=== PATIENT | male | born 1995 | race Caucasian/White ===

== ENCOUNTER 2019-11-29 13:28 | Emergency (ER) | payer OTHER ==
[~2019-11-29] VITALS: Ht 175.3 cm; Wt 81.6 kg
[~2019-11-29 13:28] MED LIST: CLONAZEPAM1 MG PO
== END 2019-11-29 17:12 | disposition home or self-care (01) ==
LOC: ED 13:28
DX: S10.0XXA Contusion of throat, initial encounter (principal); F41.9 Anxiety disorder, unspecified; F31.9 Bipolar disorder, unspecified; Z87.891 Personal history of nicotine dependence; X58.XXXA Exposure to other specified factors, initial encounter
CPT/HCPCS: 72125; 99283-25

== ENCOUNTER 2020-02-08 10:19 | Emergency (ER) | payer OTHER ==
[~2020-02-08] VITALS: Ht 175.3 cm; Wt 81.7 kg
--- OUTSIDE RECORDS SUMMARY | ~2020-02-08 | XMS | Encounter Summary ---
Demographics + + + | Address | [address] | | | [facility] [facility] [place] [address] | + + + | Home Phone | | + + + | Preferred Language | Unknown | + + + | Marital Status | Single | + + + | Buddhist Affiliation | 1013 | + + + | Race | Unknown | + + + | Ethnic Group | Unknown | + + + Author + + + | Author | [facility] | | | and [place] | + + + | Organization | [facility] | | | and [place] | + + + | Address | Unknown | + + + | Phone | Unavailable | + + + Support + + +---------+ + | Name | Relationship | Address | Phone | + + +---------+ + | Sheba Lee | ECON | Unknown | | + + +---------+ + Care Team Providers + +------+ + | Care Human Resources File Clerk Name | Role | Phone | + +------+ + PCP | Unavailable | + +------+ + Encounter Details +--------+ + + + + | Date | Type | Department | Care Team | Description | +--------+ + + + + | 03/29/ | [facility] | [facility] | [place], | | | 2012 | Encounter | [facility] | [address] | | | | | CENTER [address] | [facility] | | | | | [place] | [place] [address] | | | | | [address] | [phone] | | | | | [phone] | | | +--------+ + + + + Social History + +-------+ +--------+------+ | Tobacco Use | Types | Packs/Day | Years | Date | | | | | Used | | + +-------+ +--------+------+ | Never Assessed | | | | | + +-------+ +--------+------+ + + + | Sex Assigned at | Date Recorded | | | | + + + | Not on file | | + + + + + + + | Job Start Date | Occupation | Industry | + + + + | Not on file | Not on file | Not on file | + + + + + + + + | Travel History | Travel Start | Travel End | + + + + + + | No recent travel history available. | + + documented as of this encounter Plan of Treatment Not on filedocumented as of this encounter Procedures + +--------+ + + + | Procedure Name | Priori | Date/Time | Associated Diagnosis | Comments | | | ty | | | | + +--------+ + + + | DRUGS OF ABUSE, | Routin | 03/29/2013 | | Results for this | | SCREEN, URINE | e | 2:12 AM | | procedure are in the | | | | PDT | | results section. | + +--------+ + + + | CBC WITH | Routin | 03/29/2013 | | Results for this | | DIFFERENTIAL | e | 2:12 AM | | procedure are in the | | | | PDT | | results section. | + +--------+ + + + | TSH | Routin | 03/29/2013 | | Results for this | | | e | 2:12 AM | | procedure are in the | | | | PDT | | results section. | + +--------+ + + + | ALCOHOL | Routin | 03/29/2013 | | Results for this | | | e | 2:12 AM | | procedure are in the | | | | PDT | | results section. | + +--------+ + + + | ACETAMINOPHEN LEVEL | Routin | 03/29/2013 | | Results for this | | | e | 2:12 AM | | procedure are in the | | | | PDT | | results section. | + +--------+ + + + | SALICYLATE LEVEL | Routin | 03/29/2013 | | Results for this | | | e | 2:12 AM | | procedure are in the | | | | PDT | | results section. | + +--------+ + + + | COMPREHENSIVE | Routin | 03/29/2013 | | Results for this | | METABOLIC PANEL | e | 2:12 AM | | procedure are in the | | | | PDT | | results section. | + +--------+ + + + documented in this encounter Results CBC with Differential (03/29/2013 2:12 AM PDT) + +-------+ + + + | Component | Value | Ref Range | Performed | Pathologist | | | | | At | Signature | + +-------+ + + + | MANUAL | NO | | [facility] | [facility] | [facility] | | [facility] ? | | | [facility] | | | | | | C[facility] - | | | | | | LABORATORY | | + +-------+ + + + | WBC | 10.7 | 4.0 - 11.0 K/uL | [facility] | | | | | | [facility] | | | | | | [facility] | | | | | | CENTER - | | | | | | LABORATORY | | + +-------+ + + + | RBC | 4.75 | 4.30 - 5.70 | [facility] | | | | | M/uL | [facility] | | | | | | [facility] | | | | | | CENTER - | | | | | | LABORATORY | | + +-------+ + + + | Hemoglobin | 14.7 | 13.5 - 18.0 | [facility] | | | | | gm/dL | [facility] | | | | | | MEDICAL | | | | | | CENTER - | | | | | | LABORATORY | | + +-------+ + + + | Hematocrit | 44.7 | 40.0 - 51.0 % | [facility] | | | | | | [facility] | | | | | | [facility]ICAL | | | | | | CENTER - | | | | | | LABORATORY | | + +-------+ + + + | MCV | 94.1 | 83.0 - 101.0 fL | [facility] | | | | | | [facility] | | | | | | MEDICAL | | | | | | CENTER - | | | | | | LABORATORY | | + +-------+ + + + | MCH | 30.9 | 28.0 - 35.0 pg | [facility] | | | | | | [facility] | | | | | | [facility]ICAL | | | | | | CENTER - | | | | | | LABORATORY | | + +-------+ + + + | MCHC | 32.8 | 32.0 - 36.0 | [facility] | | | | | g/dL | [facility] | | | | | | MEDICAL | | | | | | CENTER - | | | | | | LABORATORY | | + +-------+ + + + | RDW-CV | 12.4 | <15.0 % | [facility] | | | | | | [facility] | | | | | | [facility]ICAL | | | | | | CENTER - | | | | | | LABORATORY | | + +-------+ + + + | Platelet | 290 | 140 - 440 K/uL | [facility] | | | Count | | | [facility] | | | | | | MEDICAL | | | | | | CENTER - | | | | | | LABORATORY | | + +-------+ + + + | % | 60.6 | 45 - 75 % | [facility] | | | Neutrophils | | | [facility] | | | | | | MEDICAL | | | | | | CENTER - | | | | | | LABORATORY | | + +-------+ + + + | % | 29.0 | 20 - 45 % | [facility] | | | Lymphocytes | | | [facility] | | | | | | MEDICAL | | | | | | CENTER - | | | | | | LABORATORY | | + +-------+ + + + | % Monocytes | 8.4 | 4 - 12 % | [facility] | | | | | | [facility] | | | | | | MEDICAL | | | | | | CENTER - | | | | | | LABORATORY | | + +-------+ + + + | % | 1.7 | 0 - 5 % | [facility] | | | Eosinophils | | | [facility] | | | | | | MEDICAL | | | | | | CENTER - | | | | | | LABORATORY | | + +-------+ + + + | % Basophils | 0.3 | 0 - 1 % | [facility] | | | | | | [facility] | | | | | | MEDICAL | | | | | | CENTER - | | | | | | LABORATORY | | + +-------+ + + + | Absolute | 6.5 | 1.5 - 6.6 K/uL | [facility] | | | Neutrophils | | | [facility] | | | | | | MEDICAL | | | | | | CENTER - | | | | | | LABORATORY | | + +-------+ + + + | Absolute | 3.1 | 0.6 - 3.2 K/uL | [facility] | | | Lymphocytes | | | [facility] | | | | | | MEDICAL | | | | | | CENTER - | | | | | | LABORATORY | | + +-------+ + + + | Absolute | 0.9 | 0.0 - 1.0 K/uL | [facility] | | | Monocytes | | | [facility] | | | | | | [facility] | | | | | | CENTER - | | | | | | LABORATORY | | + +-------+ + + + | Absolute | 0.2 | 0.0 - 0.4 K/uL | [facility] | | | Eosinophils | | | [facility] | | | | | | MEDICAL | | | | | | CENTER - | | | | | | LABORATORY | | + +-------+ + + + | Absolute | 0.0 | 0.0 - 0.1 K/uL | [facility] | | | Basophils | | | [facility] | | | | | | MEDICAL | | | | | | CENTER - | | | | | | LABORATORY | | + +-------+ + + + + + | Specimen | + + | | + + + + + + + | Performing | Address | City/State/Zipcode | Phone Number | | Organization | | | | + + + + + | [facility] | [address] | [place], [place] | [phone] | | [facility] | | [address] | | | - LABORATORY | | | | + + + + + | [facility] | [address] | [place] | | | [facility] | | [address] | | | - LABORATORY | | | | + + + + + TSH (03/29/2013 2:12 AM PDT) + + + + + + | Component | Value | Ref Range | Performed | Pathologist | | | | | At | Signature | + + + + + + | TSH | 2.86Comment: Testing | 0.34 - 5.60 | [facility] | | | | performed on the [facility] | uIU/mL | [facility] | | | | [facility] | | MEDICAL | | | | Analyzer. | | CENTER - | | | | | | LABORATORY | | + + + + + + + + | Specimen | + + | | + + + + + + + | Performing | Address | City/State/Zipcode | Phone Number | | Organization | | | | + + + + + | [facility] | [address] | [place] | [phone] | | [facility] | | [address] | | | - LABORATORY | | | | + + + + + | [facility] | [address] | [place], [place] | | | [facility] | | [id number] [place] [address] | | | - LABORATORY | | | | + + + + + Comprehensive Metabolic Panel (03/29/2013 2:12 AM PDT) + + + + + + | Component | Value | Ref Range | Performed | Pathologist | | | | | At | Signature | + + + + + + | Glucose | 104 | 70 - 109 mg/dL | [facility] | | | | | | [facility] | | | | | | MEDICAL | | | | | | CENTER - | | | | | | LABORATORY | | + + + + + + | Calcium | 9.3 | 8.3 - 10.5 | [facility] | | | | | mg/dL | [facility] | | | | | | MEDICAL | | | | | | CENTER - | | | | | | LABORATORY | | + + + + + + | Alkaline | 75 | 40 - 210 IU/L | [facility] | | | Phosphatase | | | [facility] | | | | | | MEDICAL | | | | | | CENTER - | | | | | | LABORATORY | | + + + + + + | AST | 23 | 10 - 42 IU/L | [facility] | | | | | | [facility] | | | | | | MEDICAL | | | | | | CENTER - | | | | | | LABORATORY | | + + + + + + | ALT | 22 | 6 - 45 IU/L | [facility] | | | | | | [facility] | | | | | | MEDICAL | | | | | | CENTER - | | | | | | LABORATORY | | + + + + + + | Bilirubin | 0.5 | 0.2 - 1.0 mg/dL | [facility] | | | Total | | | [facility] | | | | | | MEDICAL | | | | | | CENTER - | | | | | | LABORATORY | | + + + + + + | Total | 7.1 | 6.0 - 7.8 gm/dL | [facility] | | | Protein | | | [facility] | | | | | | MEDICAL | | | | | | CENTER - | | | | | | LABORATORY | | + + + + + + | Albumin | 4.3 | 3.2 - 5.0 gm/dL | [facility] | | | | | | [facility] | | | | | | MEDICAL | | | | | | CENTER - | | | | | | LABORATORY | | + + + + + + | BUN | 15 | 7 - 18 mg/dL | [facility] | | | | | | [facility] | | | | | | MEDICAL | | | | | | CENTER - | | | | | | LABORATORY | | + + + + + + | Creatinine | 0.73 | 0.60 - 1.30 | [facility] | | | | | mg/dL | [facility] | | | | | | MEDICAL | | | | | | CENTER - | | | | | | LABORATORY | | + + + + + + | BUN/Creatin | 20.5 (H) | 12 - 20 | [facility] | | | ine Ratio | | | [facility] | | | | | | MEDICAL | | | | | | CENTER - | | | | | | LABORATORY | | + + + + + + | Na | 139 | 136 - 149 mEq/L | [facility] | | | | | | [facility] | | | | | | MEDICAL | | | | | | CENTER - | | | | | | LABORATORY | | + + + + + + | K | 3.7 | 3.5 - 5.1 mEq/l | [facility] | | | | | | [facility] | | | | | | MEDICAL | | | | | | CENTER - | | | | | | LABORATORY | | + + + + + + | Cl | 105 | 98 - 109 mEq/l | [facility] | | | | | | [facility] | | | | | | MEDICAL | | | | | | CENTER - | | | | | | LABORATORY | | + + + + + + | CO2 | 27 | 24 - 31 mEq/L | [facility] | | | | | | [facility] | | | | | | MEDICAL | | | | | | CENTER - | | | | | | LABORATORY | | + + + + + + | Anion Gap | 10.7 | 6.0 - 17.0 | [facility] | | | | | | [facility] | | | | | | MEDICAL | | | | | | CENTER - | | | | | | LABORATORY | | + + + + + + + + | Specimen | + + | | + + + + + + + | Performing | Address | City/State/Zipcode | Phone Number | | Organization | | | | + + + + + | [facility] | [address] | [place], [place] | [phone] | | [facility] | | [address] | | | - LABORATORY | | | | + + + + + | [facility] | [address] | [place], [place] | | | [facility] | | [address], [facility] | | | - LABORATORY | | | | + + + + + Acetaminophen Level (03/29/2013 2:12 AM PDT) + +-------+ + + + | Component | Value | Ref Range | Performed | Pathologist | | | | | At | Signature | + +-------+ + + + | Acetaminoph | <10 | 10 - 30 ug/mL | [facility] | | | en Level | | | [facility] | | | | | | MEDICAL | | | | | | CENTER - | | | | | | LABORATORY | | + +-------+ + + + + + | Specimen | + + | | + + + + + + + | Performing | Address | City/State/Zipcode | Phone Number | | Organization | | | | + + + + + | [facility] | [address] | [place] | [phone] | | [facility] | | [address] | | | - LABORATORY | | | | + + + + + | [facility] | [address] | [place] | | | [facility] | | [address] | | | - LABORATORY | | | | + + + + + Salicylate Level (03/29/2013 2:12 AM PDT) + +-------+ + + + | Component | Value | Ref Range | Performed | Pathologist | | | | | At | Signature | + +-------+ + + + | Salicylate | <4 | <30 mg/dL | [facility] | | | Level | | | [facility] | | | | | | MEDICAL | | | | | | CENTER - | | | | | | LABORATORY | | + +-------+ + + + + + | Specimen | + + | | + + + + + + + | Performing | Address | City/State/Zipcode | Phone Number | | Organization | | | | + + + + + | [facility] | [address] | [place] | [phone] | | [facility] | | [address] | | | - LABORATORY | | | | + + + + + | [facility] | [address] | [place] | | | [facility] | | [address] | | | - LABORATORY | | | | + + + + + Ethanol (03/29/2013 2:12 AM PDT) + +-------+ + + + | Component | Value | Ref Range | Performed | Pathologist | | | | | At | Signature | + +-------+ + + + | ALCOHOL, | <5 | mg/dL | [facility] | | | SERUM/PLASM | | | [facility] | | | A | | | MEDICAL | | | | | | CENTER - | | | | | | LABORATORY | | + +-------+ + + + + + | Specimen | + + | | + + + + + + + | Performing | Address | City/State/Zipcode | Phone Number | | Organization | | | | + + + + + | [facility] | [address] | [place] | [phone] | | [facility] | | [address] | | | - LABORATORY | | | | + + + + + | [facility] | [address] | [place], [place] | | | [facility] | | [address] | | | - LABORATORY | | | | + + + + + Drugs of Abuse, Screen, Urine (03/29/2013 2:12 AM PDT) + + + + + + | Component | Value | Ref Range | Performed | Pathologist | | | | | At | Signature | + + + + + + | Amphetamine | NEGATIVE | NEGATIVE | [facility] | | | Screen, | | | [facility] | | | Urine | | | MEDICAL | | | | | | CENTER - | | | | | | LABORATORY | | + + + + + + | Barbiturate | NEGATIVE | NEGATIVE | [facility] | | | s Screen, | | | [facility] | | | Urine | | | MEDICAL | | | | | | CENTER - | | | | | | LABORATORY | | + + + + + + | Benzodiazep | NEGATIVE | NEGATIVE | [facility] | | | alexa | | | [facility] | | | Screen, | | | MEDICAL | | | Urine | | | CENTER - | | | | | | LABORATORY | | + + + + + + | Cannabinoid | NEGATIVE | NEGATIVE | [facility] | | | s Screen, | | | [facility] | | | Urine | | | MEDICAL | | | | | | CENTER - | | | | | | LABORATORY | | + + + + + + | Cocaine | NEGATIVE | NEGATIVE | [facility] | | | Metabolite | | | [facility] | | | | | | MEDICAL | | | | | | CENTER - | | | | | | LABORATORY | | + + + + + + | Methadone | NEGATIVE | NEGATIVE | [facility] | | | Screen, | | | [facility] | | | Urine | | | MEDICAL | | | | | | CENTER - | | | | | | LABORATORY | | + + + + + + | Opiates | NEGATIVEComment: The | NEGATIVE | [facility] | | | Screen, | following drugs or | | [facility] | | | Urine | classes were screened | | MEDICAL | | | | for by immunoassay at | | CENTER - | | | | these cutoff | | LABORATORY | | | | concentrations: | | | | | | Amphetamines | | | | | | 1000 ng/mL | | | | | | Barbiturates | | | | | | 200 ng/mL | | | | | | Benzodiazepines | | | | | | 200 ng/mL | | | | | | Cannabinoids | | | | | | 50 ng/mL | | | | | | Cocaine Metabolite | | | | | | 300 ng/mL | | | | | | Methadone | | | | | | 300 ng/mL | | | | | | Opiates | | | | | | 300 ng/mL | | | | | | This emergency urinary | | | | | | drug screen will not | | | | | | exclude drugs at | | | | | | levels below the | | | | | | cut-off point for | | | | | | screening, and may not | | | | | | correlate with current | | | | | | blood levels. These | | | | | | results should not be | | | | | | used for non-medical | | | | | | purposes. For important | | | | | | clinical decisions, | | | | | | confirmation by separate | | | | | | assay should be done. | | | | | | | | | | + + + + + + + + | Specimen | + + | | + + + + + + + | Performing | Address | City/State/Zipcode | Phone Number | | Organization | | | | + + + + + | [facility] | [address] | [place] | [phone] | | [facility] | | [address] | | | - LABORATORY | | | | + + + + + | [facility] | [address] | [place] | | | [facility] | | [address] | | | - LABORATORY | | | | + + + + + documented in this encounter Visit Diagnoses Not on filedocumented in this encounter"
--- OUTSIDE RECORDS SUMMARY | ~2020-02-08 | XMS | Clinical Summary ---
Demographics + + + | Address | [address] | | | [place] [address] | + + + | Home Phone | | + + + | Preferred Language | Unknown | + + + | Marital Status | Single | + + + | Sikhism Affiliation | 1013 | + + + | Race | Unknown | + + + | Ethnic Group | Unknown | + + + Author + + + | Author | [facility] | | | and [place] | + + + | Organization | [facility] | | | and [place] | [...] Team Providers + +------+ + | Care Powderer Name | Role | Phone | + +------+ + | Denny Conteh MD | PCP | | + +------+ + Allergies No Known Allergies Medications + + + +---------+------+------+-------+ | Medication | Sig | Dispensed | Refills | Star | End | Statu | | | | | | t | Date | s | | | | | | Date | | | + + + +---------+------+------+-------+ | gabapentin | Take 1 tablet by | 90 | 1 | 05/27 | | Activ | | (NEURONTIN) 800 MG | mouth 3 times daily. | tablet | | 0 | | e | | tabletIndications: | | | | 16 | | | | Bipolar affective | | | | | | | | disorder, remission | | | | | | | | status unspecified | | | | | | | | ([facility]) | | | | | | | + + + +---------+------+------+-------+ +---+ + | | Additional | | | InformationPatient | | | not taking. Reason: | | | ., Reported on | | | 05/07/2019 6:40 PM | +---+ + + + +---+---+------+---+-------+ | guanFACINE (TENEX) | Take 1 mg by mouth. | | 0 | 07/0 | | Activ | | 1 mg tablet | | | | 04/13 | | e | | | | | | 17 | | | + + +---+---+------+---+-------+ | | Take by mouth. | | 0 | | | Activ | | Aspirin-Acetaminophe | | | | | | e | | n-Caffeine (EXCEDRIN | | | | | | | | PO) | | | | | | | + + +---+---+------+---+-------+ | escitalopram | Take 20 mg by mouth | | 0 | | | Activ | | (LEXAPRO) 20 mg | Daily. | | | | | e | | tablet | | | | | | | + + +---+---+------+---+-------+ | PARoxetine (PAXIL) | Take 10 mg by mouth | | 0 | | | Activ | | 10 mg tablet | every morning. | | | | | e | + + +---+---+------+---+-------+ Active Problems No known active problems Immunizations + + + + | Name | Administration Dates | Next Due | + + + + | TDAP, (ADOL/ADULT) | 07/27/2017 | | + + + + Social History + +-------+ +--------+------+ | Tobacco Use | Types | Packs/Day | Years | Date | | | | | Used | | + +-------+ +--------+------+ | Current Some Day | | | | | | Smoker | | | | | + +-------+ +--------+------+ + +---+---+---+ | Smokeless Tobacco: | | | | | Former User | | | | + +---+---+---+ + + +---------+ + | Alcohol Use | Drinks/Week | oz/Week | Comments | + + +---------+ + | Yes | | | | + + +---------+ + + + + | Sex Assigned at [...] recent travel history available. | + + Last Filed Vital Signs + + + + + | Vital Sign | Reading | Time Taken | Comments | + + + + + | Blood Pressure | 132/71 | 05/07/2019 6:36 PM | | | | | PDT | | + + + + + | Pulse | 69 | 05/07/2019 8:45 PM | | | | | PDT | | + + + + + | Temperature | 36.5 C (97.7 F) | 05/07/2019 6:36 PM | | | | | PDT | | + + + + + | Respiratory Rate | 14 | 05/07/2019 8:32 PM | | | | | PDT | | + + + + + | Oxygen Saturation | 100% | 05/07/2019 8:45 PM | | | | | PDT | | + + + + + | Inhaled Oxygen | - | - | | | Concentration | | | | + + + + + | Weight | 76.5 kg (168 lb 10.4 | 05/07/2019 6:36 PM | | | | oz) | PDT | | + + + + + | Height | 175.3 cm (5' 9") | 05/07/2019 6:36 PM | | | | | PDT | | + + + + + | Body Mass Index | 24.91 | 05/07/2019 6:36 PM | | | | | PDT | | + + + + + Plan of Treatment + + + + + | Health Maintenance | Due Date | Last Done | Comments | + + + + + | Vaccine: | | | | | Pneumococcal 19-64 | 3 | | | | (1 of 1 - PPSV23) | | | | + + + + + | Vaccine: Influenza | | 08/21/2018, 11/21/2017, | | | (Season Ended) | 0 | 08/27/2014 | | + + + + + | Vaccine: | | 07/27/2017, 07/28/2013, | | | Dtap/Tdap/Td (6 - | 7 | 08/20/2012, Additional history | | | Td) | | exists | | + + + + + Results Not on filefrom Last 3 Months Insurance + +--------+ +--------+ +---------+--------+ | Payer | Benefi | Subscriber | Effect | Phone | Address | Type | | | t Plan | ID | daniel | | | | | | / | | Dates | | | | | | Group | | | | | | + +--------+ +--------+ +---------+--------+ | [employer] | MODA | [id number] | | [phone] | | Medica | | MEDICAID HMO | HEALTH | | 018-Pr | 1 | | id | | | MDCD | | esent | | | | | | [place] | | | | | | + +--------+ +--------+ +---------+--------+ | [employer]ID | AMERIG | [id number] | 11/24/19 | | | Medica | | HMO | ROUP | | 19-Pre | | | id | | | APPLE | | sent | | | | | | [place]ALTH | | | | | | | | [place] | | | | | | + +--------+ +--------+ +---------+--------+ + +--------+ +--------+ + + | Guarantor Name | Accoun | Relation to | Date | Phone | Billing Address | | | t Type | Patient | of | | | | | | | | | | + +--------+ +--------+ + + | Jeyson Lee | Person | Self | [birth year] | | [address] | | | al/Fam | | 1994 | [phone] | [place], [place] | | | [place] | | | [address] (Home) | [address] | + +--------+ +--------+ + + | Jeyson Lee | Worker | Self | [birth year] | [address] | | | s Comp | | 1994 | [phone] | [place] | | | | | | 8 (Home) | [address] | + +--------+ +--------+ + + | Jeyson Lee | Person | Self [birth year] | [address] | | | al/Fam | | 1994 | [address] | [place] [facility] [place] | | | [place] | | | 8 (Home) | [address] | + +--------+ +--------+ + + Advance Directives + + + + + | Type | Date Recorded | Patient | Explanation | | | | Feed Project Engineer | | + + + + + | Power of | | | | | General Laborer | | | | + + + + + | Advance | 05/13/2017 7:32 | | | | Directive | PM | | | + + + + +
--- OUTSIDE RECORDS SUMMARY | ~2020-02-08 | XMS | Encounter Summary ---
Demographics + + + | Address | [address] | | | [place] [address] | + + + | Home Phone | | + + + | Preferred Language | Unknown | + + + | Marital Status | Single | + + + | Samaritan Affiliation | 1013 | + + + | Race | Unknown | + + + | Ethnic Group | Unknown | + + + Author + + + | Author | [facility] | | | and [place] | + + + | Organization | [facility] | | | and [place] [...] Team Providers + +------+ + | Care C Architect Name | Role | Phone | + +------+ + PCP | Unavailable | + +------+ + Encounter Details +--------+ + + + + | Date | Type | Department | Care Team | Description | +--------+ + + + + | 01/21/ | Hospital | [facility] | | | | 1996 - | Encounter | MED CTR NURSERY | | | | | | [address] | | | | 01/23/ | | [place] [address] | | | | 1996 | | [phone] | | | +--------+ + + + [...] Not on filedocumented as of this encounter Visit Diagnoses Not on filedocumented in this encounter"
--- OUTSIDE RECORDS SUMMARY | ~2020-02-08 | XMS | Encounter Summary ---
Demographics + + + | Address | [address] | | | [place] [address] | + + + | Home Phone | | + + + | Preferred Language | Unknown | + + + | Marital Status | Single | + + + | Advent Affiliation | 1013 | + + + | Race | Unknown | + + + | Ethnic Group | Unknown | + + + Author + + + | Author | [facility] | | | and [place] | + + + | Organization | [facility] | | | and [place] [...] Team Providers + +------+ + | Care Supervisor [employer] Name | Role | Phone | + +------+ + PCP | Unavailable | + +------+ + Encounter Details +--------+ + + + + | Date | Type | Department | Care Team | Description | +--------+ + + + + | 12/29/ | Hospital | [facility] | | | | 1997 - | Encounter | MED CTR MED ONC | | | | | | [address] | | | | 12/30/ | | [place] [address] | | | | 1997 | | [phone] | | | +--------+ + + + [...]
--- OUTSIDE RECORDS SUMMARY | ~2020-02-08 | XMS | Clinical Summary ---
Demographics + + + | Address | [address] | | | [place] [address] | + + + | Home Phone | | + + + | Preferred Language | Unknown | + + + | Marital Status | Single | + + + | Alevism Affiliation | Unknown | + + + | Race | Unknown | + + + | Ethnic Group | Unknown | + + + Author + + + | Author | [facility] (Historical as of | | | 05-11-19) | + + + | Organization | [facility] (Historical as of | | | 05-11-19) | + + + | Address | Unknown | + + + | Phone | Unavailable | + + + Support + + +---------+ + | Name | Relationship | Address | Phone | + + +---------+ + | Karen Lee | ECON | Unknown | | + + +---------+ + Care Team Providers + +------+ + | Care Center Human Resources Manager Name | Role | Phone | + +------+ + | None, Per Pt | PP | [phone] | + +------+ + Allergies No Known Allergies Current Medications + + +--------+---------+------+------+-------+ | Prescription | Sig. | Disp. | Refills | Star | End | Statu | | | | | | t | Date | s | | | | | | Date | | | + + +--------+---------+------+------+-------+ | gabapentin | Take 800 mg by | | | 09/2 | | Activ | | (NEURONTIN) 800 MG | mouth. | | | 0/20 | | e | | tablet | | | | 16 | | | + + +--------+---------+------+------+-------+ | escitalopram | | | | 03/2 | | Activ | | (LEXAPRO) 20 MG | | | | 8/20 | | e | | tablet | | | | 19 | | | + + +--------+---------+------+------+-------+ | guanFACINE (TENEX) | Take 1 mg by mouth. | | | 07/0 | | Activ | | 1 MG tablet | | | | 7/20 | | e | | | | | | 17 | | | + + +--------+---------+------+------+-------+ | risperiDONE | Take 1 tablet by | 30 | 0 | 06/0 | | Activ | | (RISPERDAL) 1 MG | mouth daily for 30 | tablet | | 2/20 | | e | | tablet | days. | | | 19 | | | + + +--------+---------+------+------+-------+ Active Problems Not on file Social History + +-------+ +--------+------+ | Tobacco Use | Types | Packs/Day | Years | Date | | | | | Used | | + +-------+ +--------+------+ | Former Smoker | | | | | + +-------+ +--------+------+ + +---+---+---+ | Smokeless Tobacco: | | | | | Never Used | | | | + +---+---+---+ + + | Comments: vaping | + + + + +---------+ + | Alcohol Use | Drinks/We | oz/Week | Comments | | | ek | | | + + +---------+ + | No | | | | + + +---------+ + + + + | Sex Assigned at | Date Recorded | | | | + + + | Not on file | | + + + Last Filed Vital Signs + + + + | Vital Sign | Reading | Time Taken | + + + + | Blood Pressure | 101/52 | 02/24/2019 1:38 PM PDT | + + + + | Pulse | 59 | 02/24/2019 1:38 PM PDT | + + + + | Temperature | 37.3 C (99.2 F) | 02/24/2019 12:24 PM PDT | + + + + | Respiratory Rate | 18 | 02/24/2019 1:38 PM PDT | + + + + | Oxygen Saturation | 98% | 02/24/2019 1:38 PM PDT | + + + + | Inhaled Oxygen | - | - | | Concentration | | | + + + + | Weight | 81.3 kg (179 lb 3.7 | 02/24/2019 12:12 PM PDT | | | oz) | | + + + + | Height | - | - | + + + + | Body Mass Index | - | - | + + + + Plan of Treatment Not on file Results Not on filefrom Last 3 Months Insurance + +--------+ +------+-------+---------+ | Payer | Benefi | Subscriber | Type | Phone | Address | | | t Plan | ID | | | | | | / | | | | | | | Group | | | | | + +--------+ +------+-------+---------+ | [employer] | [employer]OR | [id number] | | | | | [place] | & | | | | | | | [place] | | | | | | | [place] | | | | | | | [place] | | | | | + +--------+ +------+-------+---------+ | [employer] | HEALTH | [id number] | HMO | | | | MEDICAID PLANS | Y | | | | | | | OPTION | | | | | | | [place] | | | | | | | IGROUP | | | | | + +--------+ +------+-------+---------+ + +--------+ +--------+ + + | Guarantor Name | Accoun | Relation to | Date | Phone | Billing Address | | | t Type | Patient | of | | | | | | | | | | + +--------+ +--------+ + + | VETO LEE | Person | Self | [birth year] | Home: | [address] | | | [place] | | 1994 | +- | [address] [place] | | | [place] | | | [address] | [place] [address] | + +--------+ +--------+ + + | VETO LEE | Worker | Self | [birth year] | Home: | [address] | | | s [address] | | 1994 | +- | [address] [place] | | | | | | [address] | [place] [address] | + +--------+ +--------+ + +"
--- OUTSIDE RECORDS SUMMARY | ~2020-02-08 | XMS | Encounter Summary ---
Demographics + + + | Address | [address] | | | [place] [facility] [place] [address] | + + + | Home Phone | | + + + | Preferred Language | Unknown | + + + | Marital Status | Single | + + + | Evangelical Affiliation | 1013 | + + + | Race | Unknown | + + + | Ethnic Group | Unknown | + + + Author + + + | Author | [facility] | | | and [place] | + + + | Organization | [facility] | | | and [place] | [...] Team Providers + +------+ + | Care Acquisitions Assistant Name | Role | Phone | + +------+ + | Daren Albright MD | PCP | | + +------+ + Reason for Visit +---------+ + | Reason | Comments | +---------+ + | Syncope | | +---------+ + | Anxiety | | +---------+ + | Stress | | +---------+ + Encounter Details +--------+ + + + + | Date | Type | Department | Care Team | Description | +--------+ + + + + | 11/13/ | Emergency | [facility] | Stef Mchugh, | Syncope, unspecified | | 2015 | | [facility] | MD [address] | (Primary Dx) | | | | CENTER [address] | [place] | | | | | [place] | [address] | | | | | [address] | | | | | | [phone] | | | +--------+ + + + + Social History + +-------+ +--------+------+ | Tobacco Use | Types | Packs/Day | Years | Date | | | | | Used | | + +-------+ +--------+------+ | Never Smoker | | | | | + +-------+ +--------+------+ + +---+---+---+ | Smokeless Tobacco: | | | | | Never Used | | | | + +---+---+---+ + + +---------+ + | Alcohol Use | Drinks/Week | oz/Week | Comments | + + +---------+ + | No [...] + + documented as of this encounter Last Filed Vital Signs + + + + + | Vital Sign | Reading | Time Taken | Comments | + + + + + | Blood Pressure | 140/78 | 11/13/2014 10:06 PM | | | | | PST | | + + + + + | Pulse | 88 | 11/13/2014 10:06 PM | | | | | PST | | + + + + + | Temperature | 35.8 C (96.4 F) | 11/13/2014 10:06 PM | | | | | PST | | + + + + + | Respiratory Rate | 16 | 11/13/2014 10:06 PM | | | | | PST | | + + + + + | Oxygen Saturation | 97% | 11/13/2014 10:06 PM | | | | | PST | | + + + + + | Inhaled Oxygen | - | - | | | Concentration | | | | + + + + + | Weight | 81.6 kg (180 lb) | 11/13/2014 9:18 PM | | | | | PST | | + + + + + | Height | 177.8 cm (5' 10") | 11/13/2014 9:18 PM | | | | | PST | | + + + + + | Body Mass Index | 25.83 | 11/13/2014 9:18 PM | | | | | PST | | + + + + + documented in this encounter Discharge Instructions AttachmentsThe following attachments cannot be sent through Care Everywhere.SYNCOPE, WHAT I S (GERMAN)documented in this encounter Medications at Time of Discharge + + + +---------+--------+ + | Medication | Sig | Dispensed | Refills | Start | End Date | | | | | | Date | | + + + +---------+--------+ + | clonazePAM | Take 1 mg by mouth | | 0 | | | | (KLONOPIN) 1 mg | Twice daily as | | | | 6 | | tablet | needed. | | | | | + + + +---------+--------+ + | lamoTRIgine | Take 100 mg by mouth | | 0 | | | | (LAMICTAL) 100 mg | 2 times daily. | | | | 6 | | tablet | | | | | | + + + +---------+--------+ + | lorazepam (ATIVAN) | Take 2 mg by mouth 3 | | 0 | | | | 2 MG tablet | times daily. | | | | 6 | + + + +---------+--------+ + | QUEtiapine | Take 50 mg by mouth | | 0 | | | | (SEROQUEL) 50 MG | 2 times daily. | | | | 6 | | tablet | | | | | | + + + +---------+--------+ + documented as of this encounter Plan of Treatment Not on filedocumented as of this encounter Procedures + +--------+ + + + | Procedure Name | Priori | Date/Time | Associated Diagnosis | Comments | | | ty | | | | + +--------+ + + + | ECG 12 LEAD | STAT | 11/14/2014 | | Results for this | | | | 7:32 AM | | procedure are in the | | | | PST | | results section. | + +--------+ + + + documented in this encounter Results ECG 12 lead (11/14/2014 7:32 AM PST) + + + | Narrative | Performed At | + + + | Rayo Su MD 11/14/2014 7:32 Adult ECG Report | | | Name: Jeyson Lee Age: 19 y.o. Gender: male 11/13/14 at | | | 21:35 Narrative Interpretation: Normal sinus rhythm. Normal axis. | | | Normal intervals. | | + + + documented in this encounter Visit Diagnoses + + | Diagnosis | + + | Syncope, unspecified - Primary | + + documented in this encounter Administered Medications + +--------+ +--------+------+------+ | Medication Order | MAR | Action | Dose | Rate | Site | | | Action | Date | | | | + +--------+ +--------+------+------+ | LORazepam (ATIVAN) tablet 0.5 | Given | 11/13/19 | 0.5 mg | | | | mg 0.5 mg, Oral, ONCE, Maggy | | 15 9:38 | | | | | 11/13/14 at 2200, For 1 dose | | PM PST | | | | + +--------+ +--------+------+------+ +---+---+ | | | +---+---+ documented in this encounter
--- OUTSIDE RECORDS SUMMARY | ~2020-02-08 | XMS | Encounter Summary ---
Demographics + + + | Address | [address] | | | [place] [facility] [place] [address] | + + + | Home Phone | | + + + | Preferred Language | Unknown | + + + | Marital Status | Single | + + + | Holiness Affiliation | 1013 | + + + | Race | Unknown | + + + | Ethnic Group | Unknown | + + + Author + + + | Author | [facility] | | | and [place] | + + + | Organization | [facility] | | | and [place] [...] Team Providers + +------+ + | Care Public Health Doctor Name | Role | Phone | + +------+ + PCP | Unavailable | + +------+ + Encounter Details +--------+ + + + + | Date | Type | Department | Care Team | Description | +--------+ + + + + | 02/22/ | Hospital | [facility] | | | | 2002 | Encounter | [facility] | | | | | | [address] | | | | | | [place] | | | | | | [address] | | | | | | [phone] | | | +--------+ + + + [...]
--- OUTSIDE RECORDS SUMMARY | ~2020-02-08 | XMS | Encounter Summary ---
Demographics + + + | Address | [address] | | | [place] [facility] [place] [address] | + + + | Home Phone | | + + + | Preferred Language | Unknown | + + + | Marital Status | Single | + + + | Jain Affiliation | 1013 | + + + | Race | Unknown | + + + | Ethnic Group | Unknown | + + + Author + + + | Author | [facility] | | | and [place] | + + + | Organization | [facility] | | | and [place] [...] Team Providers + +------+ + | Care Taxi Cab Driver Name | Role | Phone | + +------+ + | No, Unknownpcp | PCP | | + +------+ + Reason for Visit + + + | Reason | Comments | + + + | Leg Pain | RM 3- Bilateral leg pain x 1 week | + + + Encounter Details +--------+---------+ + + + | Date | Type | Department | Care Team | Description | +--------+---------+ + + + | 06/06/ | Office | [facility] | Dillan Downing, | Bilateral leg pain | | 2012 | Visit | [facility] [address] | MD [address] | (Primary Dx) | | | | [place] | [place], [place] | | | | | [address] | [address] | | | | | [phone] | | | +--------+---------+ + + + Social History + +-------+ [...] + + + | Blood Pressure | 104/58 | 06/06/2013 5:01 PM | | | | | PDT | | + + + + + | Pulse | 87 | 06/06/2013 5:01 PM | | | | | PDT | | + + + + + | Temperature | 36.4 C (97.6 F) | 06/06/2013 5:01 PM | | | | | PDT | | + + + + + | Respiratory Rate | 18 | 06/06/2013 5:01 PM | | | | | PDT | | + + + + + | Oxygen Saturation | 99% | 06/06/2013 5:01 PM | | | | | PDT | | + + + + + | Inhaled Oxygen | - | - | | | Concentration | | | | + + + + + | Weight | 70.8 kg (156 lb 1.6 | 06/06/2013 5:01 PM | | | | oz) | PDT | | + + + + + | Height | 172.1 cm (5' 7.75") | 06/06/2013 5:01 PM | | | | | PDT | | + + + + + | Body Mass Index | 23.91 | 06/06/2013 5:01 PM | | | | | PDT | | + + + + + documented in this encounter Patient Instructions Patient Instructions Dillan Downing MD - 06/06/2013 5:16 PM PDTTreat your legs with hea t and slow stretching twice/day. See Dr. Albright or return here if symptoms persist, harvey ge, or worsen over the week. documented in this encounter Progress Notes Dillan Downing MD - 06/06/2013 5:38 PM PDTFormatting of this note might be different fr om the original. Subjective: Chief Complaint: Leg Pain Jeyson is a 18 y.o. male who comes in with his mother complaining of bilateral leg pain. It first began a week ago in the left leg being in the hamstrings and groin muscles, though als o has been somewhat in the calf. And then over the last day he's also had some mild pain in his right hamstrings. He denies weakness or paresthesias. He's not having a back pain. D enies fevers or systemic symptoms. He's never had this previously. He denies any specific, though states a week ago he did start weight training at school. No other complaints. Patient's medications, allergies, past medical, surgical, social and family histories were reviewed and updated as appropriate. Objective: BP 104/58 | Pulse 87 | Temp 36.4 C (97.6 F) (Temporal) | Resp 18 | Ht 1.721 m (5' 7.75" ) | Wt 70.806 kg (156 lb 1.6 oz) | BMI 23.91 kg/m2 | SpO2 99% General Appearance: Alert, cooperative, no distress, appears stated age Back nontender throughout to palpation and range of motion Lower extremities have some mild tenderness to palpation in the groin muscles bilaterally a s well as in the hamstrings though are nontender elsewhere, with the hip joints and knee rosibel nts nontender throughout to palpation with full range of motion, with the calves ankles and feet appearing normal and nontender. He has good peripheral pulses and good capillary refil l. Neurologic normal strength and sensation throughout both lower extremities, reflexes 2+ and symmetric, normal heel to toe gait, normal rhomberg Skin normal Assessment and Plans: Bilateral leg pain which I suspect is do to muscle strain from overuse with school starting and weight training. I encouraged slow stretching couple times a day along with heat as ivon garzoned. I also encouraged light activity such as walking. He is to return here at any time s hould symptoms change or worsen. If it persists into next week I encouraged that he followu p with Dr. Rip Albright his primary care physician. documented in this e ncounter Plan of Treatment Not on filedocumented as of this encounter Visit Diagnoses + + | Diagnosis | + + | Bilateral leg pain - Primary Pain in limb | + + documented in this encounter
--- OUTSIDE RECORDS SUMMARY | ~2020-02-08 | XMS | Encounter Summary ---
Demographics + + + | Address | [address] | | | [place] [place] [address] | + + + | Home Phone | | + + + | Preferred Language | Unknown | + + + | Marital Status | Single | + + + | Taoist Affiliation | 1013 | + + + | Race | Unknown | + + + | Ethnic Group | Unknown | + + + Author + + + | Author | [facility] | | | and [place] | + + + | Organization | [facility] | | | and [place] | [...] Team Providers + +------+ + | Care Belt Polisher Name | Role | Phone | + +------+ + | Emilia Ibarra | PCP | | + +------+ + Reason for Visit + + + | Reason | Comments | + + + | Hand Injury | | + + + Encounter Details +--------+ + + + + | Date | Type | Department | Care Team | Description | +--------+ + + + + | 05/07/ | Emergency | [facility] | No, Physician p | Patient left after | | 2017 | | [facility] | | triage (Primary Dx) | | | | CENTER [address] | | | | | | [place] | | | | | | [address] | | | | | | [phone] | | | +--------+ + + + [...] + + + | Blood Pressure | 147/74 | 05/07/2018 3:13 PM | | | | | PDT | | + + + + + | Pulse | 78 | 05/07/2018 3:13 PM | | | | | PDT | | + + + + + | Temperature | 36.4 C (97.5 F) | 05/07/2018 3:13 PM | | | | | PDT | | + + + + + | Respiratory Rate | 18 | 05/07/2018 3:13 PM | | | | | PDT | | + + + + + | Oxygen Saturation | 97% | 05/07/2018 3:13 PM | | | | | PDT | | + + + + + | Inhaled Oxygen | - | - | | | Concentration | | | | + + + + + | Weight | 82.6 kg (182 lb) | 05/07/2018 3:13 PM | | | | | PDT | | + + + + + | Height | 177.8 cm (5' 10") | 05/07/2018 3:13 PM | | | | | PDT | | + + + + + | Body Mass Index | 26.11 | 05/07/2018 3:13 PM | | | | | PDT | | + + + + + documented in this encounter Medications at Time of Discharge + + + +---------+ + + | Medication | Sig | Dispensed | Refills | Start | End Date | | | | | | Date | | + + + +---------+ + + | | Take by mouth. | | 0 | | | | Aspirin-Acetaminophe | | | | | | | n-Caffeine (EXCEDRIN | | | | | | | PO) | | | | | | + + + +---------+ + + | gabapentin | Take 1 tablet by | 90 | 1 | 06/14/20 | | | (NEURONTIN) 800 MG | mouth 3 times daily. | tablet | | 16 | | | tabletIndications: | | | | | | | Bipolar affective | | | | | | | disorder, remission | | | | | | | status unspecified | | | | | | | (HCC) | | | | | | + + + +---------+ + + | guanFACINE (TENEX) | Take 1 mg by mouth. | | 0 | 03/31/20 | | | 1 mg tablet | | | | 17 | | + + + +---------+ + + documented as of this encounter Plan of Treatment Not on filedocumented as of this encounter Visit Diagnoses + + | Diagnosis | + + | Patient left after triage - Primary | + + documented in this encounter
--- OUTSIDE RECORDS SUMMARY | ~2020-02-08 | XMS | Encounter Summary ---
Demographics + + + | Address | [address] | | | [place] [place] [address] | + + + | Home Phone | | + + + | Preferred Language | Unknown | + + + | Marital Status | Single | + + + | Rastafari Affiliation | 1013 | + + + | Race | Unknown | + + + | Ethnic Group | Unknown | + + + Author + + + | Author | [facility] | | | and [place] | + + + | Organization | [facility] | | | and [place] [...] Team Providers + +------+ + | Care Tone Cabinet Assembler Name | Role | Phone | + +------+ + PCP | Unavailable | + +------+ + Encounter Details +--------+ + + + + | Date | Type | Department | Care Team | Description | +--------+ + + + + | 01/21/ | Hospital | [facility] | | | | 1996 - | Encounter | [facility] | | | | | | [address] | | | | 01/23/ | | [place] [address] | | | | 1994 | | [phone] | | | +--------+ + + + [...]
--- OUTSIDE RECORDS SUMMARY | ~2020-02-08 | XMS | Encounter Summary ---
Demographics + + + | Address | [address] | | | [place] [facility] [place] [address] | + + + | Home Phone | | + + + | Preferred Language | Unknown | + + + | Marital Status | Single | + + + | Uatsdin Affiliation | 1013 | + + + | Race | Unknown | + + + | Ethnic Group | Unknown | + + + Author + + + | Author | [facility] | | | and [place] | + + + | Organization | [facility] | | | and [...] Team Providers + +------+ + | Care Consumer Services Advisor Name | Role | Phone | + [...] [address] | | | | | | [place] | | | | | | [address] | | | | | | [phone] | | | +--------+ + + + [...]
--- OUTSIDE RECORDS SUMMARY | ~2020-02-08 | XMS | Encounter Summary ---
Demographics + + + | Address | [address] | | | [place] [address] | + + + | Home Phone | | + + + | Preferred Language | Unknown | + + + | Marital Status | Single | + + + | Lutheran Affiliation | 1013 | + + + | Race | Unknown | + + + | Ethnic Group | Unknown | + + + Author + + + | Author | [facility] | | | and [place] | + + + | Organization | [facility] | | | and [place] [...] Team Providers + +------+ + | Care Architecture Professor Name | Role | Phone | + +------+ + | Emilia Ibarra | PCP | | + +------+ + Reason for Visit + + + | Reason | Comments | + + + | Headache (Adult - | | | New Onset Or New | | | Symptoms) | | + + + Encounter Details +--------+ + + + + | Date | Type | Department | Care Team | Description | +--------+ + + + + | 12/10/ | Emergency | [facility] | [place] | Psychiatric | | 2018 - | | MED CTR EMERGENCY | MD Denny [address] | complaint (Primary | | | | CENTER [address] | [address] [place] | Dx) | | 12/11/ | | [place] | [place] [address] | | | 2018 | | [address] | [phone] | | | | | [phone] | | | +--------+ + + + [...] + + + | Blood Pressure | 126/70 | 12/11/2017 12:30 AM | | | | | PDT | | + + + + + | Pulse | 66 | 12/11/2017 12:30 AM | | | | | PDT | | + + + + + | Temperature | 36.2 C (97.1 F) | 12/10/2017 9:46 PM | | | | | PDT | | + + + + + | Respiratory Rate | 12 | 12/11/2017 12:30 AM | | | | | PDT | | + + + + + | Oxygen Saturation | 98% | 12/11/2017 12:30 AM | | | | | PDT | | + + + + + | Inhaled Oxygen | - | - | | | Concentration | | | | + + + + + | Weight | - | - | | + + + + + | Height | - | - | | + + + + + | Body Mass Index | - | - | | + + + + + documented in this encounter Discharge Instructions AttachmentsThe following attachments cannot be sent through Care Everywhere.Mental Illness, When a Loved One Has a (Latvian)documented in this encounter Medications at Time of [...] | + +--------+ + + + | CT HEAD WO CONTRAST | STAT | 12/10/2017 | | Results for this | | | | 10:43 PM | | procedure are in the | | | | PDT | | results section. | + +--------+ + + + documented in this encounter Results CT Head wo Contrast (12/10/2017 10:43 PM PDT) + + | Specimen | + + | | + + + + + | Narrative | Performed At | + + + | EXAM: CT HEAD WO CONTRAST dated 12/10/2017 10:35 PM HISTORY: | [facility] | | HEADACHE (ADULT - NEW ONSET OR NEW SYMPTOMS) Comparison: None. | | | TECHNIQUE: Noncontrast CT is performed from the top of calvarium | | | through the skull base. Coronal and sagittal reformats are | | | performed. DOSE: DLP 609.33 mGy-cm FINDINGS: BRAIN: | | | Ventricles, sulci and cisterns are unremarkable for age. No areas of | | | increased attenuation to suggest intracranial hemorrhage. There is | | | no mass, mass effect, or midline shift. There are no abnormal | | | extra-axial fluid or air collections. There is preservation of the | | | hu-white differentiation at this time. There is no significant | | | white matter disease. SCALP/ CALVARIUM: The scalp and skull are | | | intact and are unremarkable. Incidental identification of an | | | incomplete posterior arch of C1. This is an anatomic variant. | | | SINUSES / ORBITS/ MASTOIDS: The visible mastoid air cells and | | | paranasal sinuses are clear. The globes and retroconal contents are | | | intact and are unremarkable. Prominent adenoidal tissue is | | | age-related. IMPRESSION - No acute intracranial process. | | | The preliminary report is provided by Dr. Nelson on December 10, 2017 | | | at 10:57 PM. Dictated and Signed by: Michelet Molina MD | | | Electronically signed: 12/11/2017 10:19 AM | | + + + + + | Procedure Note | + + | Gurinder, Rad Results In - 12/11/2017 10:22 AM PDT EXAM: CT HEAD WO CONTRAST dated | | 12/10/2017 10:35 PMHISTORY: HEADACHE (ADULT - NEW ONSET OR NEW SYMPTOMS)Comparison: | | None.TECHNIQUE: Noncontrast CT is performed from the top of calvarium through theskull | | base. Coronal and sagittal reformats are performed.DOSE: DLP 609.33 mGy-cmFINDINGS: | | BRAIN: Ventricles, sulci and cisterns are unremarkable for age. No areas ofincreased | | attenuation to suggest intracranial hemorrhage. There is no mass,mass effect, or | | midline shift. There are no abnormal extra-axial fluid or aircollections. There is | | preservation of the hu-white differentiation at thistime. There is no significant | | white matter disease. SCALP/ CALVARIUM: The scalp and skull are intact and are | | unremarkable. Incidental identification of an incomplete posterior arch of C1. This is | | ananatomic variant.SINUSES / ORBITS/ MASTOIDS: The visible mastoid air cells and | | paranasal sinusesare clear. The globes and retroconal contents are intact and are | | unremarkable. Prominent adenoidal tissue is age-related.IMPRESSION -No acute | | intracranial process.The preliminary report is provided by Dr. Nelson on December 10 | | 2018 at 10:57PM.Dictated and Signed by: Michelet Molina MD Electronically signed: | | 12/11/2017 10:19 AM | |collections. There is preservation of the hu-white differentiation at this | |time. There is no significant white matter disease. | | | |SCALP/ CALVARIUM: The scalp and skull are intact and are unremarkable. | |Incidental identification of an incomplete posterior arch of C1. This is an | |anatomic variant. | | | |SINUSES / ORBITS/ MASTOIDS: The visible mastoid air cells and paranasal sinuses | |are clear. The globes and retroconal contents are intact and are unremarkable. | |Prominent adenoidal tissue is age-related. | | | |IMPRESSION - | | | |No acute intracranial process. | | | |The preliminary report is provided by Dr. Nelson on December 10, 2017 at 10:57 | |PM. | | | | | | | |Dictated and Signed by: Michelet Molina MD | | Electronically signed: 12/11/2017 10:19 AM | + + + +---------+ + + | Performing | Address | City/State/Zipcode | Phone Number | | Organization | | | | + +---------+ + + | [facility] | | | | + +---------+ + + documented in this encounter Visit Diagnoses + + | Diagnosis | + + | Psychiatric complaint - Primary | + + documented in this encounter Administered Medications + +--------+ +------+------+------+ | Medication Order | MAR | Action | Dose | Rate | Site | | | Action | Date | | | | + +--------+ +------+------+------+ | risperiDONE (risperDAL) tablet | Given | 12/11/19 | 1 mg | | | | 1 mg 1 mg, Oral, ONCE, Sun | | 18 10:46 | | | | | 12/10/17 at 2235, For 1 dose, | | PM PDT | | | | | Hazardous: Use appropriate | | | | | | | handling precautions., | | | | | | + +--------+ +------+------+------+ +---+---+ | | | +---+---+ documented in this encounter"
--- OUTSIDE RECORDS SUMMARY | ~2020-02-08 | XMS | Encounter Summary ---
Demographics + + + | Address | [address] | | | [place] [address] | + + + | Home Phone [...] | Organization | [facility] | | | and [...] Team Providers + +------+ + | Care Casket Inspector Name | Role | Phone | + +------+ + PCP | Unavailable | + +------+ + Encounter Details +--------+ + + + + | Date | Type | Department | Care Team | Description | +--------+ + + + + | 08/17/ | Hospital | [facility] | | | | 1996 | Encounter | MED CTR EMERGENCY | | | | | | [address] | | | | | | [place] | | | | | | [address] | | | | | | [phone] | | | +--------+ + + + [...]
--- OUTSIDE RECORDS SUMMARY | ~2020-02-08 | XMS | Encounter Summary ---
Demographics + + + | Address | [address] | | | [place] [address] | + + + | Home Phone | | + + + | Preferred Language | Unknown | + + + | Marital Status | Single | + + + | Pentecostalism Affiliation | 1013 | + + + | Race | Unknown | + + + | Ethnic Group | Unknown | + + + Author + + + | Author | [facility] | | | and [place] | + + + | Organization | [facility] | | | and [place] [...] Team Providers + +------+ + | Care Switch Adjuster Name | Role | Phone | + +------+ + PCP | Unavailable | + +------+ + Encounter Details +--------+ + + + + | Date | Type | Department | Care Team | Description | +--------+ + + + + | 02/04/ | [facility] | [facility] | Kingston Reis, | | | 2010 | Encounter | MED CTR EMERGENCY | MD [address] | | | | | CENTER [address] | [facility] | | | | | [place] | [place] [address] | | | | | [address] | [phone] | | | | | [phone] | | | +--------+ + + + [...] | DRUGS OF ABUSE, | Routin | 02/04/2011 | | Results for this | | SCREEN, URINE | e | 3:09 AM | | procedure are in the | | | | PDT | | results section. | + +--------+ + + + | CBC WITH | Routin | 02/04/2011 | | Results for this | | DIFFERENTIAL | e | 2:37 AM | | procedure are in the | | | | PDT | | results section. | + +--------+ + + + | TSH | Routin | 02/04/2011 | | Results for this | | | e | 2:37 AM | | procedure are in the | | | | PDT | | results section. | + +--------+ + + + | ALCOHOL | Routin | 02/04/2011 | | Results for this | | | e | 2:37 AM | | procedure are in the | | | | PDT | | results section. | + +--------+ + + + | ACETAMINOPHEN LEVEL | Routin | 02/04/2011 | | Results for this | | | e | 2:37 AM | | procedure are in the | | | | PDT | | results section. | + +--------+ + + + | SALICYLATE LEVEL | Routin | 02/04/2011 | | Results for this | | | e | 2:37 AM | | procedure are in the | | | | PDT | | results section. | + +--------+ + + + | COMPREHENSIVE | Routin | 02/04/2011 | | Results for this | | METABOLIC PANEL | e | 2:37 AM | | procedure are in the | | | | PDT | | results section. | + +--------+ + + + documented in this encounter Results Drugs of Abuse, Screen, Urine (02/04/2011 3:09 AM PDT) + + + + + [...] + + + + | Benzodiazep | POSITIVE | NEGATIVE | [facility] | | | [...] | [facility] | [address] | [place] | [phone] | | [facility] | | [address] | | | - LABORATORY | | | | + + + + + | [facility] | [address] | [place] | | | [facility] | | [address], [facility] | | | - LABORATORY | | | | + + + + + TSH (02/04/2011 2:37 AM PDT) + + + + + + | Component | Value | Ref Range | Performed | Pathologist | | | | | At | Signature | + + + + + + | TSH | 2.51Comment: Testing | 0.34 - 5.60 | [facility] | | | | performed on the [place] | uIU/mL | [facility] | | | | [facility] | | MEDICAL | | | | Analyzer. | | CENTER - | | | | | | LABORATORY | | + + + + + + + + | Specimen | + + | | + + + + + + + | Performing | Address | City/[facility]/Zipcode | Phone Number | | Organization | | | | + + + + + | [facility] | [address] | [place], [place] | [phone] | | [facility] | | [address] | | | - LABORATORY | | | | + + + + + | [facility] | [address] | [place], [place] | | | [facility] | | [address], [facility] | | | - LABORATORY | | | | + + + + + CBC with Differential (02/04/2011 2:37 AM PDT) + +---------+ + + + | Component | Value | Ref Range | Performed | Pathologist | | | | | At | Signature | + +---------+ + + + | WBC | 11.1 | 4.5 - 13.5 K/uL | [facility] | | | | | | [facility] | | | | | | MEDICAL | | | | | | CENTER - | | | | | | LABORATORY | | + +---------+ + + + | RBC | 4.69 | 4.30 - 5.70 | [facility] | | | | | M/uL | [facility] | | | | | | MEDICAL | | | | | | CENTER - | | | | | | LABORATORY | | + +---------+ + + + | Hemoglobin | 14.8 | 13.5 - 18.0 | [facility] | | | | | gm/dL | [facility] | | | | | | MEDICAL | | | | | | CENTER - | | | | | | LABORATORY | | + +---------+ + + + | Hematocrit | 44.6 | 40.0 - 51.0 % | [facility] | | | | | | [facility] | | | | | | MEDICAL | | | | | | CENTER - | | | | | | LABORATORY | | + +---------+ + + + | MCV | 95.2 | 83.0 - 101.0 fL | [facility] | | | | | | [facility] | | | | | | MEDICAL | | | | | | CENTER - | | | | | | LABORATORY | | + +---------+ + + + | MCH | 31.6 | 28.0 - 35.0 pg | [facility] | | | | | | [facility] | | | | | | MEDICAL | | | | | | CENTER - | | | | | | LABORATORY | | + +---------+ + + + | MCHC | 33.2 | 32.0 - 36.0 | [facility] | | | | | g/dL | [facility] | | | | | | MEDICAL | | | | | | CENTER - | | | | | | LABORATORY | | + +---------+ + + + | RDW-CV | 12.8 | <15.0 % | [facility] | | | | | | [facility] | | | | | | MEDICAL | | | | | | CENTER - | | | | | | LABORATORY | | + +---------+ + + + | Platelet | 363 | 140 - 440 K/uL | [facility] | | | Count | | | [facility] | | | | | | MEDICAL | | | | | | CENTER - | | | | | | LABORATORY | | + +---------+ + + + | % | 47.8 | 45 - 75 % | [facility] | | | Neutrophils | | | [facility] | | | | | | MEDICAL | | | | | | CENTER - | | | | | | LABORATORY | | + +---------+ + + + | % | 41.1 | 20 - 45 % | [facility] | | | Lymphocytes | | | [facility] | | | | | | MEDICAL | | | | | | CENTER - | | | | | | LABORATORY | | + +---------+ + + + | % Monocytes | 8.7 | 4 - 12 % | [facility] | | | | | | [facility] | | | | | | MEDICAL | | | | | | CENTER - | | | | | | LABORATORY | | + +---------+ + + + | % | 2.0 | 0 - 5 % | [facility] | | | Eosinophils | | | [facility] | | | | | | MEDICAL | | | | | | CENTER - | | | | | | LABORATORY | | + +---------+ + + + | % Basophils | 0.4 | 0 - 1 % | [facility] | | | | | | [facility] | | | | | | MEDICAL | | | | | | CENTER - | | | | | | LABORATORY | | + +---------+ + + + | Absolute | 5.3 | 1.5 - 6.6 K/uL | [facility] | | | Neutrophils | | | [facility] | | | | | | MEDICAL | | | | | | CENTER - | | | | | | LABORATORY | | + +---------+ + + + | Absolute | 4.6 (H) | 0.6 - 3.2 K/uL | [facility] | | | Lymphocytes | | | [facility] | | | | | | MEDICAL | | | | | | CENTER - | | | | | | LABORATORY | | + +---------+ + + + | Absolute | 1.0 | 0.0 - 1.0 K/uL | [facility] | | | Monocytes | | | [facility] | | | | | | MEDICAL | | | | | | CENTER - | | | | | | LABORATORY | | + +---------+ + + + | Absolute | 0.2 | 0.0 - 0.4 K/uL | [facility] | | | Eosinophils | | | [facility] | | | | | | MEDICAL | | | | | | CENTER - | | | | | | LABORATORY | | + +---------+ + + + | Absolute | 0.0 | 0.0 - 0.1 K/uL | [facility] | | | Basophils | | | [facility] | | | | | | MEDICAL | | | | | | CENTER - | | | | | | LABORATORY | | + +---------+ + + + + + | Specimen | + + | | + + + + + + + | Performing | Address | City/State/Zipcode | Phone Number | | Organization | | | | + + + + + | [facility] | [address] | [place], [place] | [phone] | | [facility] | | [address] | | | - LABORATORY | | | | + + + + + | [facility] | [address] | [place], [place] | | | [facility] | | [address] | | | - LABORATORY | | | | + + + + + Comprehensive Metabolic Panel (02/04/2011 2:37 AM PDT) + + + + + + | Component | Value | Ref Range | Performed | Pathologist | | | | | At | Signature | + + + + + + | Glucose | 91 | 70 - 109 mg/dL | [facility] | | | | | | [facility] | | | | | | MEDICAL | | | | | | CENTER - | | | | | | LABORATORY | | + + + + + + | Calcium | 9.8 | 8.3 - 10.5 | [facility] | | | | | mg/dL | [facility] | | | | | | MEDICAL | | | | | | CENTER - | | | | | | LABORATORY | | + + + + + + | Alkaline | 204 | 103 - 429 IU/L | [facility] | | | Phosphatase | | | [facility] | | | | | | MEDICAL | | | | | | CENTER - | | | | | | LABORATORY | | + + + + + + | AST | 24 | 10 - 42 IU/L | [facility] | | | | | | [facility] | | | | | | MEDICAL | | | | | | CENTER - | | | | | | LABORATORY | | + + + + + + | ALT | 20 | 6 - 45 IU/L | [facility] | | | | | | [facility] | | | | | | MEDICAL | | | | | | CENTER - | | | | | | LABORATORY | | + + + + + + | Bilirubin | 1.3 (H) | 0.2 - 1.0 mg/dL | [facility] | | | Total | | | [facility] | | | | | | MEDICAL | | | | | | CENTER - | | | | | | LABORATORY | | + + + + + + | Total | 7.4 | 6.0 - 7.8 gm/dL | [facility] | | | Protein | | | [facility] | | | | | | MEDICAL | | | | | | CENTER - | | | | | | LABORATORY | | + + + + + + | Albumin | 4.6 | 3.2 - 5.0 gm/dL | [facility] | | | | | | [facility] | | | | | | MEDICAL | | | | | | CENTER - | | | | | | LABORATORY | | + + + + + + | BUN | 10 | 7 - 18 mg/dL | [facility] | | | | | | [facility] | | | | | | MEDICAL | | | | | | CENTER - | | | | | | LABORATORY | | + + + + + + | Creatinine | 0.57 (L) | 0.60 - 1.30 | [facility] | | | | | mg/dL | [facility] | | | | | | MEDICAL | | | | | | CENTER - | | | | | | LABORATORY | | + + + + + + | Estimated | >60Comment: For | mL/min/A | [facility] | | | GFR | -Americans, | | [facility] | | | | please multiply the | | MEDICAL | | | | result by 1.210 | | CENTER - | | | | This is an estimated | | LABORATORY | | | | GFR and is based on | | | | | | a standard body | | | | | | mass and serum | | | | | | creatinine | | | | + + + + + + | BUN/Creatin | 17.5 | 12 - 20 | [facility] | [...] + + + + | K | 4.1 | 3.5 - 5.1 mEq/l | [facility] | | | | | | [facility] | | | | | | MEDICAL | | | | | | CENTER - | | | | | | LABORATORY | | + + + + + + | Cl | 102 | 98 - 109 mEq/l | [facility] | | | | | | [facility] | | | | | | MEDICAL | | | | | | CENTER - | | | | | | LABORATORY | | + + + + + + | CO2 | 29 | 24 - 31 mEq/L | [facility] | | | | | | [facility] | | | | | | MEDICAL | | | | | | CENTER - | | | | | | LABORATORY | | + + + + + + | Anion Gap | 12.1 | 6.0 - 17.0 | [facility] | | | | | | ST[facility] [...] + + + + + | [facility] | [address] | [place] | [phone] | | [facility] | | [address] | | | - LABORATORY | | | | + + + + + | [facility] | [address] | [place] | | | [facility] | | [address], [facility] | | | - LABORATORY | | | | + + + + + Acetaminophen Level (02/04/2011 2:37 AM PDT) + + + + + + | Component | Value | Ref Range | Performed | Pathologist | | | | | At | Signature | + + + + + + | Acetaminoph | <10Comment: | 10 - 30 ug/mL | [facility] | | | en Level | TOXIC : >150 ug/mL 4 | | [facility] | | | | hours post ingestion | | MEDICAL | | | | | | CENTER - | | | | > 75 ug/mL 8 hours | | LABORATORY | | | | post ingestion | | | | | | > 40 | | | | | | ug/mL 12 hours post | | | | | | ingestion | | | | + + + + + + + + | Specimen | + + | | + + + + + + + | Performing | Address | City/[facility] | Phone Number | | Organization | | | | + + + + + | [facility] | [address] | [place], [place] | [phone] | | [facility] | | [address] | | | - LABORATORY | | | | + + + + + | [facility] | [address] | [place] | | | [facility] | | [address], [facility] | | | - LABORATORY | | | | + + + + + Salicylate Level (02/04/2011 2:37 AM PDT) + +-------+ + + + | Component | Value | Ref Range | Performed | Pathologist | | | | | At | Signature | + +-------+ + + + | Salicylate | <4 | <30 mg/dL | [facility] | | | Level | | | [facility] | | | | | | MEDICAL [...] + | [facility] | [address] | [place], [place] | [phone] | | [facility] | | [address] | | | - LABORATORY | | | | + + + + + | [facility] | [address] | [place], [place] | | | [facility] | | [address] | | | - LABORATORY | | | | + + + + + Ethanol (02/04/2011 2:37 AM PDT) + +-------+ + + + | Component | Value | Ref Range | Performed | Pathologist | | | | | At | Signature | + +-------+ + + + | ALCOHOL, | <5 | mg/dL | [facility] | | | SERUM/PLASM | | | [facility] | | | A | | | [...] + | [facility] | [address] | [place] | [phone] | | [facility] | | [address] | | | - LABORATORY | | | | + + + + + | [facility] | [address] | [place] | | | [facility] | | [address], [facility] | | | - LABORATORY | | | | + + + + + documented in this encounter Visit Diagnoses Not on filedocumented in this encounter"
--- OUTSIDE RECORDS SUMMARY | ~2020-02-08 | XMS | Encounter Summary ---
Demographics + + + | Address | [address] | | | [place] [address] | + + + | Home Phone | | + + + | Preferred Language | Unknown | + + + | Marital Status | Single | + + + | Restoration Affiliation | 1013 | + + + | Race | Unknown | + + + | Ethnic Group | Unknown | + + + Author + + + | Author | [facility] | | | and [place] | + + + | Organization | [facility] | | | and [...] Team Providers + +------+ + | Care Slicing Machine Tender Name | Role | Phone | + +------+ + PCP | Unavailable | + +------+ + Encounter Details +--------+ + + + + | Date | Type | Department | Care Team | Description | +--------+ + + + + | 12/29/ | Hospital | [facility] | | | | 1997 - | Encounter | [facility] MED [facility] | | | | | | [address] | | | | 12/30/ | | [place] [address] | | | | 1997 | | [phone] | | | +--------+ + + + [...]
--- OUTSIDE RECORDS SUMMARY | ~2020-02-08 | XMS | Encounter Summary ---
Demographics + + + | Address | [address] | | | [place] [address] | + + + | Home Phone | | + + + | Preferred Language | Unknown | + + + | Marital Status | Single | + + + | Caodaism Affiliation | 1013 | + + + | Race | Unknown | + + + | Ethnic Group | Unknown | + + + Author + + + | Author | [facility] | | | and [place] | + + + | Organization | [facility] | | | and [...] Team Providers + +------+ + | Care Retail Cosmetics Sales Beauty Advisor Name | Role | Phone | + +------+ + | Emilia Ibarra | PCP | | + +------+ + Reason for Visit + + + | Reason | Comments | + + + | Medication Refill | | + + + Encounter Details +--------+--------+ + + + | Date | Type | Department | Care Team | Description | +--------+--------+ + + + | 04/27/ | Refill | [facility] | Lisa Elam MD | Medication Refill | | 2018 | | [facility] | [address] | | | | | [address] | [place] | | | | | [place] | [address] | | | | | [address] | | | | | | [phone] | | | +--------+--------+ + + + Social History + +-------+ [...]
--- OUTSIDE RECORDS SUMMARY | ~2020-02-08 | XMS | Encounter Summary ---
Demographics + + + | Address | [address] | | | [place] [address] | + + + | Home Phone | | + + + | Preferred Language | Unknown | + + + | Marital Status | Single | + + + | Mormon Affiliation | 1013 | + + + | Race | Unknown | + + + | Ethnic Group | Unknown | + + + Author + + + | Author | [facility] | | | and [place] | + + + | Organization | [facility] | | | and [...] Team Providers + +------+ + | Care Pensions Retirement Plan Specialist Name | Role | Phone | + [...] | | | | CENTER [address] | [place] | | | | | [place] | [address] | | | | | [address] | | | | | | [phone] | | | +--------+ + + + [...] sent through Care Everywhere.SYNCOPE, WHAT I S (MAORI)documented in this encounter Medications at Time of [...]
--- OUTSIDE RECORDS SUMMARY | ~2020-02-08 | XMS | Encounter Summary ---
Demographics + + + | Address | [address] | | | [place] [facility] [address] | + + + | Home Phone | | + + + | Preferred Language | Unknown | + + + | Marital Status | Single | + + + | Synagogue Affiliation | 1013 | + + + | Race | Unknown | + + + | Ethnic Group | Unknown | + + + Author + + + | Author | [facility] | | | and [place] | + + + | Organization | [facility] | | | and [place] | [...] Team Providers + +------+ + | Care Field Crop I Farmworker Name | Role | Phone | + +------+ + | No, Physician | PCP | Unavailable | + +------+ + Reason for Visit + + + | Reason | Comments | + + + | Hand Injury | | + + + Encounter Details +--------+ + + + + | Date | Type | Department | Care Team | Description | +--------+ + + + + | 07/27/ | Emergency | [facility] | Kingston Reis, | Contusion of right | | 2017 | | [facility] | MD [address] | hand including | | | | CENTER [address] | [facility] [place] | fingers, initial | | | | [place], [place] | [place] [address] | encounter (Primary | | | | [address] | [phone] | Dx); Abrasion of | | | | [phone] | | multiple sites of | | | | | | right hand and | | | | | | finger, initial | | | | | | encounter | +--------+ + + + + Social [...] + + + | Blood Pressure | 115/51 | 07/27/2017 2:00 PM | | | | | PDT | | + + + + + | Pulse | 72 | 07/27/2017 2:00 PM | | | | | PDT | | + + + + + | Temperature | 35.9 C (96.7 F) | 07/27/2017 2:00 PM | | | | | PDT | | + + + + + | Respiratory Rate | 16 | 07/27/2017 2:00 PM | | | | | PDT | | + + + + + | Oxygen Saturation | 98% | 07/27/2017 2:00 PM | | | | | PDT | | + + + + + | Inhaled Oxygen | - | - | | | Concentration | | | | + + + + + | Weight | - | - | | + + + + + | Height | 177.8 cm (5' 10") | 07/27/2017 2:00 PM | | | | | PDT | | + + + + + | Body Mass Index | - | - | | + + + + + documented in this encounter Discharge Instructions Instructions Kingston Reis MD - 07/27/2017Ice pack and elevation Splint as needed for 2 weeks Follow-up at occupational health Tylenol and/or ibuprofen for pain AttachmentsThe following attachments cannot be sent through Care Everywhere.Abrasions (Engl debra)Hand Contusion (Lao)documented in this encounter Medications at Time of [...] + +---------+ + + | | Take 1 tablet by | 15 | 0 | 05/13/20 | | | acetaminophen-codein | mouth every 6 hours | tablet | | 17 | 8 | | e (TYLENOL #3) | as needed. | | | | | | 300-30 MG per tablet | | | | | | + + + +---------+ + + | atoMOXetine | Take 40 mg by mouth | | 0 | | | | (STRATTERA) 40 mg | Daily. | | | | 8 | | capsule | | | | | | + + + +---------+ + + | ciprofloxacin | Take 1 tablet by | 14 | 0 | 05/13/20 | | | (CIPRO) 500 mg | mouth 2 times daily. | tablet | | 17 | 8 | | tablet | | | | | | + + + +---------+ + + | escitalopram | Take 20 mg by mouth. | | 0 | 06/14/20 | | | (LEXAPRO) 20 mg | | | | 16 | 8 | | tablet | | | | | | + + + +---------+ + + | lamoTRIgine | Take 1 tablet by | 30 | 1 | 06/14/20 | 03/18/201 | | (LAMICTAL) 100 mg | mouth Daily. | tablet | | 16 | 8 | | tabletIndications: | | | | | | | Bipolar affective | | | | | | | disorder, remission | | | | | | | status unspecified | | | | | | | ([facility]) | | | | | | + + + +---------+ + + documented as of this encounter Plan of Treatment Not on filedocumented as of this encounter Procedures + +--------+ + + + | Procedure Name | Priori | Date/Time | Associated Diagnosis | Comments | | | ty | | | | + +--------+ + + + | XR HAND RIGHT 3 + VW | STAT | 07/27/2017 | | Results for this | | | | 2:54 PM | | procedure are in the | | | | PDT | | results section. | + +--------+ + + + documented in this encounter Results XR Hand Right 3 + Vw (07/27/2017 2:54 PM PDT) + + | Specimen | + + | | + + + + + | Narrative | Performed At | + + + | XR HAND RIGHT 3 + VW 07/27/2017 2:54 PM HISTORY: HAND INJURY. | [facility] | | COMPARISON: None. FINDINGS: There are no acute osseous | | | abnormalities. No significant degenerative changes are seen. Bone | | | mineralization is normal. Soft tissue structures are unremarkable. | | | IMPRESSION - No acute osseous findings. Dictated and Signed by: | | | Jeyson Calixto MD Electronically signed: 07/27/2017 3:22 PM | | + + + + + | Procedure Note | + + | Gurinder, Rad Results In - 07/27/2017 3:25 PM PDT XR HAND RIGHT 3 + VW 07/27/2017 2:54 PM | | | | HISTORY: HAND INJURY. | | | | COMPARISON: None. | | | | FINDINGS: | | There are no acute osseous abnormalities. No significant degenerative changes | | are seen. Bone mineralization is normal. Soft tissue structures are | | unremarkable. | | | | IMPRESSION - | | No acute osseous findings. | | | | Dictated and Signed by: Jeyson Calixto MD | | Electronically signed: 07/27/2017 3:22 PM | + + + +---------+ + + | Performing | Address | City/State/Zipcode | Phone Number | | Organization | | | | + +---------+ + + | [facility] | | | | + +---------+ + + documented in this encounter Visit Diagnoses + + | Diagnosis | + + | Contusion of right hand including fingers, initial encounter - Primary | + + | Abrasion of multiple sites of right hand and finger, initial encounter | + + documented in this encounter Administered Medications + +--------+ +---------+------+ + | Medication Order | MAR | Action | Dose | Rate | Site | | | Action | Date | | | | + +--------+ +---------+------+ + | bifnkga-[id number] | Given | 07/27/20 | 0.5 mLs | | Deltoid- | | pertussis (ADACEL, Tdap) vaccine | | 17 2:39 | | | Right | | injection 0.5 mL 0.5 mL, | | PM PDT | | | | | Intramuscular, ONCE, [facility] 07/27/17 | | | | | | | at 1435, For 1 dose, Keep in | | | | | | | refrigerator. Provide patient | | | | | | | education information., | | | | | | + +--------+ +---------+------+ + +---+---+ | | | +---+---+ documented in this encounter
--- OUTSIDE RECORDS SUMMARY | ~2020-02-08 | XMS | Encounter Summary ---
Demographics + + + | Address | [address] | | | [place] [facility] [address] | + + + | Home Phone | | + + + | Preferred Language | Unknown | + + + | Marital Status | Single | + + + | Muslim Affiliation | 1013 | + + + | Race | Unknown | + + + | Ethnic Group | Unknown | + + + Author + + + | Author | [facility] | | | and [place] | + + + | Organization | [facility] | | | and [place] [...] Team Providers + +------+ + | Care Fire Patrol Name | Role | Phone | + +------+ + | No, Physician | PCP | Unavailable | + +------+ + Reason for Visit + + + | Reason | Comments | + + + | Toe Swelling | | + + + Encounter Details +--------+ + + + + | Date | Type | Department | Care Team | Description | +--------+ + + + + | 05/13/ | Emergency | [facility] | Denny Vega | Toe infection | | 2017 | | [facility] | Davion Brown MD | (Primary Dx) | | | | CENTER [address] | [address] | | | | | [place], [place] | [place], [place] | | | | | [address] | [address] | | | | | [phone] | | | +--------+ + + + [...] + + + | Blood Pressure | 132/66 | 05/13/2017 6:07 PM | | | | | PDT | | + + + + + | Pulse | 73 | 05/13/2017 6:07 PM | | | | | PDT | | + + + + + | Temperature | 36.7 C (98.1 F) | 05/13/2017 6:07 PM | | | | | PDT | | + + + + + | Respiratory Rate | 16 | 05/13/2017 6:07 PM | | | | | PDT | | + + + + + | Oxygen Saturation | 97% | 05/13/2017 6:07 PM | | | | | PDT | | + + + + + | Inhaled Oxygen | - | - | | | Concentration | | | | + + + + + | Weight | - | - | | + + + + + | Height | 177.8 cm (5' 10") | 05/13/2017 6:07 PM | | | | | PDT | | + + + + + | Body Mass Index | - | - | | + + + + + documented in this encounter Discharge Instructions Instructions Denny Vega MD - 05/13/2017Soak this foot in Epsom salts. No return for severe worsening symptoms. Please follow-up with her primary care physician. documented in this encounter Medications at Time [...] | | | | | | | ([facility]) | | | | | | [...] +---------+ + + | escitalopram | Take 1 tablet by | 30 | 1 | 06/14/20 | | | (LEXAPRO) 20 mg | mouth Daily. | tablet | | 16 | 7 | | tabletIndications: | | | | | | | Bipolar affective | | | | | | | disorder, remission | | | | | | | status unspecified | | | | | | | ([facility]) | | | | | | + + + +---------+ + + | gabapentin | Take 800 mg by | | 0 | 06/14/20 | | | (NEURONTIN) 800 MG | mouth. | | | 16 | 7 | | tablet | | | | | | + + + +---------+ + + | guanFACINE (TENEX) | take 1 tablet by | | 0 | 03/31/20 | | | 1 mg tablet | mouth daily at | | | 17 | 7 | | | bedtime | | | | | + + + +---------+ + + | lamoTRIgine | Take 100 mg by | | 0 | 06/14/20 | | | (LAMICTAL) 100 mg | mouth. | | | 16 | 7 | | tablet | | | | | | + + + +---------+ + + | lamoTRIgine | Take 1 tablet by | 30 | 1 | 06/14/20 | | | (LAMICTAL) 100 mg | mouth Daily. | tablet | | 16 | 8 | | tabletIndications: | | | | | | | Bipolar affective | | | | | | | disorder, remission | | | | | | | status unspecified | | | | | | | ([facility]) | | | | | | + + + +---------+ + + documented as of this encounter Plan of Treatment Not on filedocumented as of this encounter Visit Diagnoses + + | Diagnosis | + + | Toe infection - Primary Unspecified local infection of skin and subcutaneous tissue | + + documented in this encounter Administered Medications + +--------+ +--------+------+------+ | Medication Order | MAR | Action | Dose | Rate | Site | | | Action | Date | | | | + +--------+ +--------+------+------+ | ciprofloxacin (CIPRO) tablet | Given | 05/13/20 | 500 mg | | | | 500 mg 500 mg, Oral, ONCE, Sat | | 17 7:29 | | | | | 05/13/17 at 1925, For 1 dose, Give | | PM PDT | | | | | 2 hours before or 6 hours after | | | | | | | antacids, dairy, calcium, iron, | | | | | | | or zinc., Indications: Cellulitis | | | | | | + +--------+ +--------+------+------+ +---+---+ | | | +---+---+ documented in this encounter
--- OUTSIDE RECORDS SUMMARY | ~2020-02-08 | XMS | Encounter Summary ---
Demographics + + + | Address | [address] | | | [place] [facility] [address] | + + + | Home Phone | | + + + | Preferred Language | Unknown | + + + | Marital Status | Single | + + + | Gnosticism Affiliation | 1013 | + + + | Race | Unknown | + + + | Ethnic Group | Unknown | + + + Author + + + | Author | [facility] | | | and [place] | + + + | Organization | [facility] | | | and [place] [...] Team Providers + +------+ + | Care Eco Industrial Development Consultant Name | Role | Phone | + +------+ + | Emilia Ibarra | PCP | | + +------+ + Encounter Details +--------+ + + + + | Date | Type | Department | Care Team | Description | +--------+ + + + + | 01/07/ | Emergency | [facility] | Beni Greer | Sprain of anterior | | 2019 | | [facility] | [place], DO [address] | talofibular ligament | | | | EMERGENCY [place] | [address] [place], [place] | of right ankle, | | | | [address] | [address] | initial encounter | | | | [place] | | | | | | [address] | | | | | | [phone] | | | +--------+ + + + [...] + + documented as of this encounter Medications at Time of Discharge [...] tablet by | 90 | 1 | 09/20/20 | | | (NEURONTIN) 800 MG | [...] + +--------+ + + + | XR ANKLE RIGHT 3 + | Routin | 01/07/2019 | | Results for this | | VW | e | 1:37 PM | | procedure are in the | | | | PDT | | results section. | + +--------+ + + + documented in this encounter Results XR Ankle Right 3 + Vw (01/07/2019 1:37 PM PDT) + + | Specimen | + + | | + + + + + | Impressions | Performed At | + + + | No acute fracture or dislocation. Signed by: Chris Multani Paula | | | Sign Date/Time: 01/07/2019 1:49 PM | | + + + + + + | Narrative | Performed At | + + + | RIGHT ANKLE THREE VIEWS CLINICAL INFORMATION: Twisted ankle. | | | COMPARISON: None FINDINGS: No acute fracture or dislocation. | | | Corticated smooth osseous densities along the medial aspect of the | | | talus may represent accessory ossification centers or old avulsion | | | injury. No significant arthropathy or soft tissue abnormalities. | | | Normal bone mineralization. No joint effusion. | | + + + + + | Procedure Note | + + | Juan Fairchild Beronica - 05/07/2019 11:47 PM PDT RIGHT ANKLE THREE VIEWS | | CLINICAL INFORMATION: | | Twisted ankle. | | COMPARISON: | | None | | FINDINGS: | | No acute fracture or dislocation. Corticated smooth osseous densities | | along the medial aspect of the talus may represent accessory | | ossification centers or old avulsion injury. No significant | | arthropathy or soft tissue abnormalities. Normal bone mineralization. | | No joint effusion. | | IMPRESSION: | | No acute fracture or dislocation. | | Signed by: Chris Multani Paula | | Sign Date/Time: 01/07/2019 1:49 PM | + + documented in this encounter Visit Diagnoses + + | Diagnosis | + + | Sprain of anterior talofibular ligament of right ankle, initial encounter | + + documented in this encounter"
--- OUTSIDE RECORDS SUMMARY | ~2020-02-08 | XMS | Encounter Summary ---
Demographics + + + | Address | [address] | | | [place] [place] [address] | + + + | Home Phone | | + + + | Preferred Language | Unknown | + + + | Marital Status | Single | + + + | Rastafari Affiliation | 1013 | + + + | Race | Unknown | + + + | Ethnic Group | Unknown | + + + Author + + + | Author | [facility] | | | and [place] | + + + | Organization | [facility] | | | and [place] [...] Team Providers + +------+ + | Care Reinforcing Iron And Rebar Workers Name | Role | Phone | + +------+ + | Emilia Ibarra | PCP | | + +------+ + Encounter Details +--------+ + + + + | Date | Type | Department | Care Team | Description | +--------+ + + + + | 02/24/ | Emergency | [facility] | Beni Hendrix MD | Psychosis, | | 2019 | | [facility] [place] | [address] | unspecified | | | | EMERGENCY CENTER | [place] [address] | psychosis type | | | | [address] | [phone] | ([facility]); Auditory | | | | [place], [place] | | hallucinations | | | | [address] | | | | | | [phone] | | | +--------+ + + + [...] tablet by | 90 | 1 | 06/14/ | | | (NEURONTIN) 800 MG | mouth 3 times daily. | tablet | | 16 | | | tabletIndications: | | | | | | | Bipolar affective | | | | | | | disorder, remission | | | | | | | status unspecified | | | | | | | ([facility]) | | | | | | + [...] + | Diagnosis | + + | Psychosis, unspecified psychosis type ([facility]) | + + | Auditory hallucinations Hallucinations | + + documented in this encounter"
--- OUTSIDE RECORDS SUMMARY | ~2020-02-08 | XMS | Encounter Summary ---
Demographics + + + | Address | [address] | | | [place] [place] [address] | + + + | Home Phone | | + + + | Preferred Language | Unknown | + + + | Marital Status | Single | + + + | Episcopalian Affiliation | 1013 | + + + | Race | Unknown | + + + | Ethnic Group | Unknown | + + + Author + + + | Author | [facility] | | | and [place] | + + + | Organization | [facility] | | | and [place] | [...] Team Providers + +------+ + | Care Laundry Aide Name | Role | Phone | + +------+ + | Daren Albright MD | PCP | | + +------+ + Reason for Visit + + + | Reason | Comments | + + + | Medication | Rm3; was living in [place], now has straightened out insurance for | | Management | here and ready to see someone | + + + Encounter Details +--------+---------+ + + + | Date | Type | Department | Care Team | Description | +--------+---------+ + + + | 06/14/ | Office | [facility] | Shaggy Ferrer | Bipolar affective | | 2016 | Visit | CARE [address] | Hardeep Antony MD | disorder, remission | | | | [place] | [address] | status unspecified | | | | [address] | [place], [place] | ([facility]) (Primary Dx) | | | | [phone] | [address] | | | | | | | | +--------+---------+ + + + [...] + + + | Blood Pressure | 126/80 | 06/14/2016 2:39 PM | | | | | PDT | | + + + + + | Pulse | 80 | 06/14/2016 2:39 PM | | | | | PDT | | + + + + + | Temperature | 36.5 C (97.7 F) | 06/14/2016 2:39 PM | | | | | PDT | | + + + + + | Respiratory Rate | 16 | 06/14/2016 2:39 PM | | | | | PDT | | + + + + + | Oxygen Saturation | 98% | 06/14/2016 2:39 PM | | | | | PDT | | + + + + + | Inhaled Oxygen | - | - | | | Concentration | | | | + + + + + | Weight | 86.2 kg (190 lb) | 06/14/2016 2:39 PM | | | | | PDT | | + + + + + | Height | 180.3 cm (5' 11") | 06/14/2016 2:39 PM | | | | | PDT | | + + + + + | Body Mass Index | 26.5 | 06/14/2016 2:39 PM | | | | | PDT | | + + + + + documented in this encounter Patient Instructions Patient Instructions Shaggy Ferrer Jr., MD - 06/14/2016 3:07 PM PDTTake medicati on as prescribed Follow-up with her primary care provider documented in this encounter Progress Notes Shaggy Ferrer Jr., MD - 06/14/2016 3:38 PM PDTSeth Eber Lee Chief Complaint: Bipolar disorder - medication HPI: Patient just moved back here from [place] and has a history of bipolar disorder and i s running out of his medications. He has also been on Strattera for ADD. He is having no o ther symptoms. Past medical history, past surgical history, medication reviewed. Physical Exam: No acute distress, alert and oriented, non-toxic in appearance BP 126/80 mmHg | Pulse 80 | Temp(Src) 36.5 C (97.7 F) (Temporal) | Resp 16 | Ht 1.803 m (5' 11") | Wt 86.183 kg (190 lb) | BMI 26.51 kg/m2 | SpO2 98% Chest: Good breath sounds bilaterally without rales rocker wheezes Heart: Regular rhythm without murmur gallop or rub Abdomen: Soft, bowel sounds normal, no hepatosplenomegaly, no tenderness guarding or reboun d Diagnosis: Bipolar disorder Plan: Refill lamotrigine, Lexapro and gabapentin; f/u with PCP This note dictated with Galindo and was not proofread. document ed in this encounter Plan of Treatment Not on filedocumented as of this encounter Visit Diagnoses + + | Diagnosis | + + | Bipolar affective disorder, remission status unspecified (HCC) - Primary | + + documented in this encounter
--- OUTSIDE RECORDS SUMMARY | ~2020-02-08 | XMS | Encounter Summary ---
Demographics + + + | Address | [address] | | | [place] [facility] [address] | + + + | Home Phone | | + + + | Preferred Language | Unknown | + + + | Marital Status | Single | + + + | Uatsdin Affiliation | 1013 | + + + | Race | Unknown | + + + | Ethnic Group | Unknown | + + + Author + + + | Author | [facility] | | | and [place] | + + + | Organization | [facility] | | | and [place] [...] Team Providers + +------+ + | Care Arrow Point Attacher Name | Role | Phone | + +------+ + | Emilia Ibarra | PCP | | + +------+ + Encounter Details +--------+ + + + + | Date | Type | Department | Care Team | Description | +--------+ + + + + | 01/07/ | Emergency | [facility] | Beni Greer | Sprain of anterior | | 2019 | | [facility] | [place], DO [address] | talofibular ligament | | | | EMERGENCY [place] | [address] [place], [place] | of right ankle, | | | | [address] | [address] | initial encounter | | | | [place] | | | | | | [address] | | | | | | [phone] | | | +--------+ + + + [...]
--- OUTSIDE RECORDS SUMMARY | ~2020-02-08 | XMS | Encounter Summary ---
Demographics + + + | Address | [address] | | | [place] [facility] [address] | + + + | Home Phone | | + + + | Preferred Language | Unknown | + + + | Marital Status | Single | + + + | Quaker Affiliation | 1013 | + + + | Race | Unknown | + + + | Ethnic Group | Unknown | + + + Author + + + | Author | [facility] | | | and [place] | + + + | Organization | [facility] | | | and [...] Team Providers + +------+ + | Care Elect Equip Maint Eng Name | Role | Phone | + +------+ + PCP | Unavailable | + +------+ + Encounter Details +--------+ + + + + | Date | Type | Department | Care Team | Description | +--------+ + + + + | 02/22/ | Hospital | [facility] | | | | 2002 | Encounter | [facility] | | | | | | [address] | | | | | | [place] | | | | | | [address] | | | | | | [phone] | | | +--------+ + + + [...]
--- OUTSIDE RECORDS SUMMARY | ~2020-02-08 | XMS | Encounter Summary ---
Demographics + + + | Address | [address] | | | [place] [facility] [address] | + + + | Home Phone | | + + + | Preferred Language | Unknown | + + + | Marital Status | Single | + + + | Protestant Affiliation | 1013 | + + + | Race | Unknown | + + + | Ethnic Group | Unknown | + + + Author + + + | Author | [facility] | | | and [place] | + + + | Organization | [facility] | | | and [place] [...] Team Providers + +------+ + | Care Carbon Capture Power Plant Operator Name | Role | Phone | + +------+ + | No, Physician | PCP | Unavailable | + +------+ + Encounter Details +--------+ + + + + | Date | Type | Department | Care Team | Description | +--------+ + + + + | 06/05/ | Abstract | [facility] | Michelet Damon MD | | | 2016 | | GASTROENTEROLOGY | [address], [place] | | | | | [address] [place] | [address] [place] | | | | | [address] [place], [place] | [address] | | | | | [address] | | | | | | [phone] | | | +--------+ + + + [...]
--- OUTSIDE RECORDS SUMMARY | ~2020-02-08 | XMS | Encounter Summary ---
Demographics + + + | Address | [address] | | | [place] [facility] [address] | + + + | Home Phone | | + + + | Preferred Language | Unknown | + + + | Marital Status | Single | + + + | Sikh Affiliation | 1013 | + + + | Race | Unknown | + + + | Ethnic Group | Unknown | + + + Author + + + | Author | [facility] | | | and [place] | + + + | Organization | [facility] | | | and [place] [...] Team Providers + +------+ + | Care Superintendent Maintenance Name | Role | Phone | + +------+ + PCP | Unavailable | + +------+ + Encounter Details +--------+ + + + + | Date | Type | Department | Care Team | Description | +--------+ + + + + | 08/17/ | Hospital | [facility] | | | | 1996 | Encounter | MED CTR EMERGENCY | | | | | | [address] | | | | | | [place] | | | | | | [address] | | | | | | [phone] | | | +--------+ + + + [...]
--- OUTSIDE RECORDS SUMMARY | ~2020-02-08 | XMS | Encounter Summary ---
Demographics + + + | Address | [address] | | | [place] [facility] [place] [address] | + + + | Home Phone | | + + + | Preferred Language | Unknown | + + + | Marital Status | Single | + + + | Druze Affiliation | 1013 | + + + | Race | Unknown | + + + | Ethnic Group | Unknown | + + + Author + + + | Author | [facility] | | | and [place] | + + + | Organization | [facility] | | | and [place] [...] Team Providers + +------+ + | Care Boring Machine Operator Name | Role | Phone | [...] 2016 | | GASTROENTEROLOGY | [address], [place] | | | | | [address] [place] | [address] [place] | | | | | [address] [place], [place] | [address] | | | | | [address] | | | | | | [phone] | | | +--------+ + + + [...]
--- OUTSIDE RECORDS SUMMARY | ~2020-02-08 | XMS | Encounter Summary ---
Demographics + + + | Address | [address] | | | [facility] [address] | + + + | Home Phone | | + + + | Preferred Language | Unknown | + + + | Marital Status | Single | + + + | Judaism Affiliation | 1013 | + + + | Race | Unknown | + + + | Ethnic Group | Unknown | + + + Author + + + | Author | [facility] | | | and [place] | + + + | Organization | [facility] | | | and [place] [...] Team Providers + +------+ + | Care Lay Health Advocate Name | Role | Phone | + +------+ + | Denny Conteh MD | PCP | | + +------+ + Reason for Visit + + + | Reason | Comments | + + + | Medication Refill | | + + + | Flank Pain | | + + + Encounter Details +--------+ + + + + | Date | Type | Department | Care Team | Description | +--------+ + + + + | 05/07/ | Emergency | [facility] | [facility] | Medication refill | | 2019 | | [facility] | MD Denny [address] | (Primary Dx); Left | | | | CENTER [address] | [address] | flank pain | | | | [place], [place] | [place] [address] | | | | | [address] | [phone] | | | | | [phone] | | | +--------+ + + + [...] following attachments cannot be sent through Care Everywhere.Abdominal Pain, Adult (Bhutanese)documented in this encounter Medications at Time of [...] | | 0 | | | | (LEXAPRO) 20 mg | Daily. | | | | | | tablet | | | | [...] + + + +---------+ + + | PARoxetine (PAXIL) | Take 10 mg by mouth | | 0 | | | | 10 mg tablet | every morning. | | | | | + + + +---------+ + + | risperiDONE | Take 1 tablet by | 60 | 1 | 05/07/20 | | | (RISPERDAL) 1 mg | mouth 2 times daily | tablet | | 19 | 9 | | tablet | for 30 days. | | | | | + + + +---------+ + + documented as of this encounter Plan of Treatment Not on filedocumented as of this encounter Procedures + +--------+ + + + | Procedure Name | Priori | Date/Time | Associated Diagnosis | Comments | | | ty | | | | + +--------+ + + + | CBC WITH | STAT | 05/07/2019 | | Results for this | | DIFFERENTIAL | | 8:10 PM | | procedure are in the | | | | PDT | | results section. | + +--------+ + + + | LIPASE | STAT | 05/07/2019 | | Results for this | | | | 8:10 PM | | procedure are in the | | | | PDT | | results section. | + +--------+ + + + | COMPREHENSIVE | STAT | 05/07/2019 | | Results for this | | METABOLIC PANEL | | 8:10 PM | | procedure are in the | | | | PDT | | results section. | + +--------+ + + + | CT RENAL STONE WO | STAT | 05/07/2019 | | Results for this | | CONTRAST | | 7:48 PM | | procedure are in the | | | | PDT | | results section. | + +--------+ + + + | URINALYSIS WITH | Add-On | 05/07/2019 | | Results for this | | MICROSCOPIC WITH | | 6:52 PM | | procedure are in the | | CULTURE IF INDICATED | | PDT | | results section. | + +--------+ + + + | URINALYSIS, | STAT | 05/07/2019 | | Results for this | | MICROSCOPIC ONLY | | 6:52 PM | | procedure are in the | | | | PDT | | results section. | + +--------+ + + + | POC GLUCOSE | Routin | 05/07/2019 | | Results for this | | | e | 6:42 PM | | procedure are in the | | | | PDT | | results section. | + +--------+ + + + documented in this encounter Results Lipase (05/07/2019 8:10 PM PDT) + + + + + + | Component | Value | Ref Range | Performed | Pathologist | | | | | At | Signature | + + + + + + | Lipase | 29Comment: New method in | 12 - 53 U/L | [facility] | | | | use as of November 21, | | [facility] | | | | 2019. Check reference | | MEDICAL | | | | range for changes.Some | | CENTER - | | | | analytes show | | LABORATORY | | | | significant variation | | | | | | from the previous | | | | | | method.It may be | | | | | | necessary to set a new | | | | | | baseline for this | | | | | | analyte. | | | | + + + + + + + + | Specimen | + + | Blood | + + + + + + + | Performing | Address | City/State/Zipcode | Phone Number | | Organization | | | | + + + + + | [facility] | [address] | [place] | [phone] | | [facility] | | [address] | | | - LABORATORY | | | | + + + + + Comprehensive Metabolic Panel (05/07/2019 8:10 PM PDT) + + + + + + | Component | Value | Ref Range | Performed | Pathologist | | | | | At | Signature | + + + + + + | Na | 135 (L) | 136 - 145 | [facility] | | | | | mmol/L | [facility] | | | | | | MEDICAL | | | | | | CENTER - | | | | | | LABORATORY | | + + + + + + | K | 3.4 | 3.4 - 5.1 | [facility] | | | | | mmol/L | [facility] | | | | | | MEDICAL | | | | | | CENTER - | | | | | | LABORATORY | | + + + + + + | Cl | 100 | 98 - 107 mmol/L | [facility] | | | | | | [facility] | | | | | | MEDICAL | | | | | | CENTER - | | | | | | LABORATORY | | + + + + + + | CO2 | 28 | 20 - 31 mmol/L | [facility] | | | | | | [facility] | | | | | | [facility] | | | | | | CENTER - | | | | | | LABORATORY | | + + + + + + | Anion Gap | 7 | 3 - 16 mmol/L | [facility] | | | | | | [facility] | | | | | | MEDICAL | | | | | | CENTER - | | | | | | LABORATORY | | + + + + + + | Glucose | 93 | 60 - 106 mg/dL | [facility] | | | | | | [facility] | | | | | | MEDICAL | | | | | | CENTER - | | | | | | LABORATORY | | + + + + + + | BUN | 5 (L) | 9 - 23 mg/dL | [facility] | | | | | | [facility] | | | | | | MEDICAL | | | | | | CENTER - | | | | | | LABORATORY | | + + + + + + | Creatinine | 0.83 | 0.70 - 1.30 | [facility] | | | | | mg/dL | [facility] | | | | | | [facility] | | | | | | CENTER - | | | | | | LABORATORY | | + + + + + + | eGFR if not | >60Comment: GLOMERULAR | >=60 | [facility] | | | | FILTRATION | mL/min/1.73m2 | [facility] | | | NIGERIAN | RATE,ESTIMATED | | MEDICAL | | | | mL/min/1.32x0Zadf than | | CENTER - | | | | 60 Chronic kidney | | LABORATORY | | | | disease,if found over a | | | | | | 3-month period.Less than | | | | | | 15 Kidney failureFor | | | | | | | | | | | | Americans,multiply the | | | | | | calculated GFR by 1.21. | | | | | | | | | | + + + + + + | Calcium | 10.4 | 8.7 - 10.4 | [facility] | | | | | mg/dL | [facility] | | | | | | MEDICAL | | | | | | CENTER - | | | | | | LABORATORY | | + + + + + + | Albumin | 5.1 (H) | 3.2 - 4.8 g/dL | [facility] | | | | | | [facility] | | | | | | MEDICAL | | | | | | CENTER - | | | | | | LABORATORY | | + + + + + + | Bilirubin | 1.3 (H) | 0.3 - 1.2 mg/dL | [facility] | | | Total | | | [facility] | | | | | | MEDICAL | | | | | | CENTER - | | | | | | LABORATORY | | + + + + + + | Total | 7.8 | 5.7 - 8.2 g/dL | [facility] | | | Protein | | | [facility] | | | | | | MEDICAL | | | | | | CENTER - | | | | | | LABORATORY | | + + + + + + | AST | 21 | 0 - 34 U/L | [facility] | | | | | | [facility] | | | | | | MEDICAL | | | | | | CENTER - | | | | | | LABORATORY | | + + + + + + | ALT | 18 | 10 - 49 U/L | [facility] | | | | | | [facility] | | | | | | MEDICAL | | | | | | CENTER - | | | | | | LABORATORY | | + + + + + + | Alkaline | 35 (L) | 46 - 116 U/L | [facility] | | | Phosphatase | | | [facility] | | | | | | MEDICAL | | | | | | CENTER - | | | | | | LABORATORY | | + + + + + + | Globulin | 2.7 | 2.1 - 3.8 g/dL | [facility] | | | | | | [facility] | | | | | | MEDICAL | | | | | | CENTER - | | | | | | LABORATORY | | + + + + + + | Albumin/Hannah | 1.9 | 0.8 - 1.9 | [facility] | | | bulin Ratio | | | [facility] | | | | | | MEDICAL | | | | | | CENTER - | | | | | | LABORATORY | | + + + + + + | BUN/Creatin | 6.0 | | [facility] | | | ine Ratio | | | [facility] | | | | | | MEDICAL | | | | | | CENTER - | | | | | | LABORATORY | | + + + + + + + + | Specimen | + + | Blood | + + + + + + + | Performing | Address | City/State/Zipcode | Phone Number | | Organization | | | | + + + + + | [facility] | [address] | [place] | [phone] | | [facility] | | [address] | | | - LABORATORY | | | | + + + + + CBC with Differential (05/07/2019 8:10 PM PDT) + + + + + + | Component | Value | Ref Range | Performed | Pathologist | | | | | At | Signature | + + + + + + | WBC | 15.3 (H) | 4.0 - 11.0 K/uL | [facility] | | | | | | [facility] - | | | | | | LABORATORY | | + + + + + + | RBC | 4.57 | 4.30 - 5.70 | [facility] | | | | | M/uL | [facility] | | | | | | MEDICAL | | | | | | CENTER - | | | | | | LABORATORY | | + + + + + + | Hemoglobin | 14.7 | 13.5 - 18.0 | [facility] | | | | | g/dL | [facility] | | | | | | [facility]ICAL | | | | | | CENTER - | | | | | | LABORATORY | | + + + + + + | Hematocrit | 43.1 | 40.0 - 51.0 % | [facility] | | | | | | [facility] | | | | | | MEDICAL | | | | | | CENTER - | | | | | | LABORATORY | | + + + + + + | MCV | 94.3 | 83.0 - 101.0 fL | [facility] | | | | | | [facility] | | | | | | MEDICAL | | | | | | CENTER - | | | | | | LABORATORY | | + + + + + + | MCH | 32.2 | 28.0 - 35.0 pg | [facility] | | | | | | [facility] | | | | | | MEDICAL | | | | | | CENTER - | | | | | | LABORATORY | | + + + + + + | MCHC | 34.1 | 32.0 - 36.0 | [facility] | | | | | g/dL | [facility] | | | | | | MEDICAL | | | | | | CENTER - | | | | | | LABORATORY | | + + + + + + | RDW-CV | 11.8 | <15.0 % | [facility] | | | | | | [facility] | | | | | | MEDICAL | | | | | | CENTER - | | | | | | LABORATORY | | + + + + + + | RDW-SD | 40.4 | 35.1 - 46.3 fL | [facility] | | | | | | [facility] | | | | | | MEDICAL | | | | | | CENTER - | | | | | | LABORATORY | | + + + + + + | Platelet | 345 | 140 - 440 K/uL | [facility] | | | Count | | | [facility] | | | | | | MEDICAL | | | | | | CENTER - | | | | | | LABORATORY | | + + + + + + | MPV | 9.6 | 6.5 - 12.4 fL | [facility] | | | | | | [facility] | | | | | | MEDICAL | | | | | | CENTER - | | | | | | LABORATORY | | + + + + + + | % | 78.0 | 45.0 - 82.0 % | [facility] | | | Neutrophils | | | [facility] | | | | | | MEDICAL | | | | | | CENTER - | | | | | | LABORATORY | | + + + + + + | % | 13.5 (L) | 20.0 - 45.0 % | [facility] | | | Lymphocytes | | | [facility] | | | | | | MEDICAL | | | | | | CENTER - | | | | | | LABORATORY | | + + + + + + | % Monocytes | 7.3 | 4.0 - 12.0 % | [facility] | | | | | | [facility] | | | | | | MEDICAL | | | | | | CENTER - | | | | | | LABORATORY | | + + + + + + | % | 0.5 | 0.0 - 5.0 % | [facility] | | | Eosinophils | | | [facility] | | | | | | MEDICAL | | | | | | CENTER - | | | | | | LABORATORY | | + + + + + + | % Basophils | 0.3 | 0.0 - 1.0 % | [facility] | | | | | | [facility] | | | | | | MEDICAL | | | | | | CENTER - | | | | | | LABORATORY | | + + + + + + | % Immature | 0.4 | 0.0 - 0.4 % | [facility] | | | Granulocyte | | | [facility] | | | s | | | MEDICAL | | | | | | CENTER - | | | | | | LABORATORY | | + + + + + + | Absolute | 11.91 (H) | 1.80 - 8.50 | [facility] | | | Neutrophils | | K/uL | [facility] | | | | | | MEDICAL | | | | | | CENTER - | | | | | | LABORATORY | | + + + + + + | Absolute | 2.06 | 0.60 - 3.20 | [facility] | | | Lymphocytes | | K/uL | [facility] | | | | | | MEDICAL | | | | | | CENTER - | | | | | | LABORATORY | | + + + + + + | Absolute | 1.11 (H) | 0.00 - 1.00 | [facility] | | | Monocytes | | K/uL | [facility] | | | | | | MEDICAL | | | | | | CENTER - | | | | | | LABORATORY | | + + + + + + | Absolute | 0.07 | 0.00 - 0.40 | [facility] | | | Eosinophils | | K/uL | [facility] | | | | | | MEDICAL | | | | | | CENTER - | | | | | | LABORATORY | | + + + + + + | Absolute | 0.05 | 0.00 - 0.10 | [facility] | | | Basophils | | K/uL | [facility] | | | | | | MEDICAL | | | | | | CENTER - | | | | | | LABORATORY | | + + + + + + | Absolute | 0.06 (H) | 0.00 - 0.03 | [facility] | | | Immature | | K/uL | [facility] | | | Granulocyte | | | MEDICAL | | | s | | | CENTER - | | | | | | LABORATORY | | + + + + + + | % nRBC | 0 | 0 - 2 per 100 | [facility] | | | | | WBCs | [facility] | | | | | | MEDICAL | | | | | | CENTER - | | | | | | LABORATORY | | + + + + + + | Absolute | 0.00 | 0.00 - 0.01 | [facility] | | | nRBC | | K/uL | [facility] | | | | | | [facility] | | | | | | CENTER - | | | | | | LABORATORY | | + + + + + + + + | Specimen | + + | Blood | + + + + + + + | Performing | Address | City/State/Zipcode | Phone Number | | Organization | | | | + + + + + | [facility] | [address] | [place] | [phone] | | [facility] | | [address] | | | - LABORATORY | | | | + + + + + CT Renal Stone Wo Contrast (05/07/2019 7:48 PM PDT) + + | Specimen | + + | | + + + + + | Narrative | Performed At | + + + | CT RENAL STONE WO CONTRAST 05/07/2019 7:44 PM HISTORY: MEDICATION | [facility] | | REFILL. COMPARISON: None. PROTOCOL: Axial images of the | | | abdomen and pelvis were obtained. Coronal and sagittal reformations | | | were acquired. FINDINGS: LUNG BASE: The visualized lung bases | | | are clear. HEPATOBILIARY: The liver demonstrates normal parenchyma. | | | The gallbladder is normal. No evidence of intrahepatic or | | | extrahepatic biliary ductal dilatation. SPLEEN: Normal parenchyma. No | | | evidence of mass or splenomegaly. PANCREASE: Normal parenchyma. No | | | evidence of pancreatic ductal dilation. ADRENAL GLANDS: No evidence | | | of nodule, mass or suspicious thickening. KIDNEYS: The right kidney | | | and visualized ureter are normal. The left kidney and visualized | | | ureter are normal. No evidence of hydronephrosis or hydroureter. No | | | evidence of renal calculi or suspicious mass. BOWEL: The stomach is | | | normal. Imaged small bowel and colon demonstrate no acute findings. | | | No evidence of dilatation to suggest obstruction or abnormal bowel | | | wall thickening. Appendix is not confidently discriminated. | | | VASCULATURE: Limited visualization of the venous and arterial | | | structures show no gross abnormality within the confines of a | | | noncontrast CT. LYMPH NODES: No enlarged lymph nodes are visualized | | | within the omentum or retroperitoneum. PERITONEUM: There is no | | | evidence for free fluid or free air. REPRODUCTIVE: Prostate and | | | seminal vesicles are unremarkable. SOFT TISSUES: Body wall soft | | | tissue structures are normal. BONES: There are no acute osseous | | | abnormalities. IMPRESSION - Appendix is not confidently | | | identified. No evidence for an acute intra-abdominal abnormality. | | | No renal calculi, hydronephrosis, or hydroureter. A few air-fluid | | | levels are seen in the colon without evidence of dilation to suggest | | | obstruction. Findings may suggest mild enteritis if this patient has | | | diarrhea. These findings also may be within the limits for this | | | patient. Dictated and Signed by: Jeyson Calixto MD | | | Electronically signed: 05/07/2019 8:27 PM | | + + + + + | Procedure Note | + + | Gurinder, Rad Results In - 05/07/2019 8:[address] RENAL STONE WO CONTRAST 05/07/2019 | | 7:44 PMHISTORY: MEDICATION REFILL.COMPARISON: None.PROTOCOL: Axial images of the abdomen | | and pelvis were obtained. Coronal andsagittal reformations were acquired.FINDINGS:LUNG | | BASE: The visualized lung bases are clear. HEPATOBILIARY: The liver demonstrates normal | | parenchyma. The gallbladder isnormal. No evidence of intrahepatic or extrahepatic | | biliary ductal dilatation.SPLEEN: Normal parenchyma. No evidence of mass or | | splenomegaly.PANCREASE: Normal parenchyma. No evidence of pancreatic ductal | | dilation.ADRENAL GLANDS: No evidence of nodule, mass or suspicious thickening.KIDNEYS: | | The right kidney and visualized ureter are normal. The left kidney andvisualized ureter | | are normal. No evidence of hydronephrosis or hydroureter. Noevidence of renal calculi or | | suspicious mass.BOWEL: The stomach is normal. Imaged small bowel and colon demonstrate | | no acutefindings. No evidence of dilatation to suggest obstruction or abnormal bowelwall | | thickening. Appendix is not confidently discriminated.VASCULATURE: Limited | | visualization of the venous and arterial structures show nogross abnormality within the | | confines of a noncontrast CT.LYMPH NODES: No enlarged lymph nodes are visualized within | | the omentum orretroperitoneum. PERITONEUM: There is no evidence for free fluid or free | | air.REPRODUCTIVE: Prostate and seminal vesicles are unremarkable. SOFT TISSUES: Body | | wall soft tissue structures are normal. BONES: There are no acute osseous | | abnormalities.IMPRESSION -Appendix is not confidently identified.No evidence for an | | acute intra-abdominal abnormality. No renal calculi,hydronephrosis, or hydroureter.A few | | air-fluid levels are seen in the colon without evidence of dilation tosuggest | | obstruction. Findings may suggest mild enteritis if this patient hasdiarrhea. These | | findings also may be within the limits for this patient.Dictated and Signed by: Jeyson | | MD Durga Electronically signed: 05/07/2019 8:27 PM | |gross abnormality within the confines of a noncontrast CT. | |LYMPH NODES: No enlarged lymph nodes are visualized within the omentum or | |retroperitoneum. | |PERITONEUM: There is no evidence for free fluid or free air. | |REPRODUCTIVE: Prostate and seminal vesicles are unremarkable. | |SOFT TISSUES: Body wall soft tissue structures are normal. | |BONES: There are no acute osseous abnormalities. | | | |IMPRESSION - | |Appendix is not confidently identified. | | | |No evidence for an acute intra-abdominal abnormality. No renal calculi, | |hydronephrosis, or hydroureter. | | | |A few air-fluid levels are seen in the colon without evidence of dilation to | |suggest obstruction. Findings may suggest mild enteritis if this patient has | |diarrhea. These findings also may be within the limits for this patient. | | | |Dictated and Signed by: Jeyson Calixto MD | | Electronically signed: 05/07/2019 8:27 PM | + + + +---------+ + + | Performing | Address | City/State/Zipcode | Phone Number | | Organization | | | | + +---------+ + + | [facility] | | | | + +---------+ + + Urinalysis with Microscopic with Culture if Indicated (05/07/2019 6:52 PM PDT) + + + + + + | Component | Value | Ref Range | Performed | Pathologist | | | | | At | Signature | + + + + + + | Color, | Colorless (A) | Light Yellow, | [facility] | | | Urine | | Yellow, Straw | [facility] | | | | | | MEDICAL | | | | | | CENTER - | | | | | | LABORATORY | | + + + + + + | Clarity | Clear | Clear | [facility] | | | | | | [facility] | | | | | | MEDICAL | | | | | | CENTER - | | | | | | LABORATORY | | + + + + + + | pH, Urine | 7.0 | 5.0 - 8.0 | [facility] | | | | | | [facility] | | | | | | MEDICAL | | | | | | CENTER - | | | | | | LABORATORY | | + + + + + + | Specific | 1.002 | 1.001 - 1.030 | [facility] | | | [place], | | | [facility] | | | Urine | | | MEDICAL | | | | | | CENTER - | | | | | | LABORATORY | | + + + + + + | Protein, | Negative | Negative | [facility] | | | Urine | | | [facility] | | | | | | MEDICAL | | | | | | CENTER - | | | | | | LABORATORY | | + + + + + + | Blood, | Negative | Negative | [facility] | | | Urine | | | [facility] | | | | | | MEDICAL | | | | | | CENTER - | | | | | | LABORATORY | | + + + + + + | Glucose, | Negative | Negative | [facility] | | | Urine | | | [facility] | | | | | | MEDICAL | | | | | | CENTER - | | | | | | LABORATORY | | + + + + + + | Ketones, | Negative | Negative | [facility] | | | Urine | | | [facility] | | | | | | MEDICAL | | | | | | CENTER - | | | | | | LABORATORY | | + + + + + + | Bilirubin, | Negative | Negative | [facility] | | | Urine | | | [facility] | | | | | | MEDICAL | | | | | | CENTER - | | | | | | LABORATORY | | + + + + + + | Nitrite, | Negative | Negative | [facility] | | | Urine | | | [facility] | | | | | | MEDICAL | | | | | | CENTER - | | | | | | LABORATORY | | + + + + + + | Leukocyte | Negative | Negative | [facility] | | | Esterase, | | | [facility] | | | Urine | | | MEDICAL | | | | | | CENTER - | | | | | | LABORATORY | | + + + + + + | Urobilinoge | Negative | 0.2 mg/dL, 1.0 | [facility] | | | n, Urine | | mg/dL, Negative | [facility] | | | | | | MEDICAL | | | | | | CENTER - | | | | | | LABORATORY | | + + + + + + | White Blood | 0-2 | 0 - 2 /HPF | [facility] | | | Cells, | | | [facility] | | | Urine | | | MEDICAL | | | | | | CENTER - | | | | | | LABORATORY | | + + + + + + | Red Blood | 0-2 | 0 - 2 /HPF | [facility] | | | Cells, | | | [facility] | | | Urine | | | MEDICAL | | | | | | CENTER - | | | | | | LABORATORY | | + + + + + + | Squamous | 0-2 | 0 - 2 /LPF | [facility] | | | Epithelial | | | [facility] | | | Cells, | | | MEDICAL | | | Urine | | | CENTER - | | | | | | LABORATORY | | + + + + + + | Bacteria, | Negative | Negative /HPF | [facility] | | | Urine | | | [facility] | | | | | | [facility] | | | | | | CENTER - | | | | | | LABORATORY | | + + + + + + | Urine | Urine Culture Not | | [facility] | | | Comment | Indicated | | [facility] | | | | | | MEDICAL | | | | | | CENTER - | | | | | | LABORATORY | | + + + + + + + + | Specimen | + + | Urine - Urine | | specimen obtained by | | clean catch | | procedure (specimen) | + + + + + + + | Performing | Address | City/State/Zipcode | Phone Number | | Organization | | | | + + + + + | [facility] | [address] | [place] | [phone] | | [facility] | | [address] | | | - LABORATORY | | | | + + + + + Urinalysis, Microscopic Only (05/07/2019 6:52 PM PDT) + + + + + + | Component | Value | Ref Range | Performed | Pathologist | | | | | At | Signature | + + + + + + | White Blood | 0-2 | 0 - 2 /HPF | [facility] | | | Cells, | | | [facility] | | | Urine | | | MEDICAL | | | | | | CENTER - | | | | | | LABORATORY | | + + + + + + | Red Blood | 0-2 | 0 - 2 /HPF | [facility] | | | Cells, | | | [facility] | | | Urine | | | MEDICAL | | | | | | CENTER - | | | | | | LABORATORY | | + + + + + + | Squamous | 0-2 | 0 - 2 /LPF | [facility] | | | Epithelial | | | [facility] | | | Cells, | | | MEDICAL | | | Urine | | | CENTER - | | | | | | LABORATORY | | + + + + + + | Bacteria, | Negative | Negative /HPF | [facility] | | | Urine | | | [facility] | | | | | | MEDICAL | | | | | | CENTER - | | | | | | LABORATORY | | + + + + + + + + | Specimen | + + | Urine - Urine | | specimen obtained by | | clean catch | | procedure (specimen) | + + + + + + + | Performing | Address | City/State/Zipcode | Phone Number | | Organization | | | | + + + + + | [facility] | [address] | [place] | [phone] | | [facility] | | [address] | | | - LABORATORY | | | | + + + + + POC Glucose (05/07/2019 6:42 PM PDT) + +-------+ + + + | Component | Value | Ref Range | Performed | Pathologist | | | | | At | Signature | + +-------+ + + + | Glucose, | 87 | 70 - 109 mg/dL | [facility] | | | POC | | | [facility] | | | | | | MEDICAL | | | | | | CENTER - | | | | | | LABORATORY | | + +-------+ + + + + + | Specimen | + + | Blood | + + + + + + + | Performing | Address | City/State/Zipcode | Phone Number | | Organization | | | | + + + + + | [facility] | [address] | [place] | [phone] | | [facility] | | [address] | | | - LABORATORY | | | | + + + + + documented in this encounter Visit Diagnoses + + | Diagnosis | + + | Medication refill - Primary Issue of repeat prescriptions | + + | Left flank pain Abdominal pain, unspecified site | + + documented in this encounter Administered Medications + +--------+ +--------+------+------+ | Medication Order | MAR | Action | Dose | Rate | Site | | | Action | Date | | | | + +--------+ +--------+------+------+ | fentaNYL (PF) injection 25 mcg | Given | 05/07/20 | 25 mcg | | | | 25 mcg, Intravenous, ONCE, Tue | | 19 8:07 | | | | | 05/07/19 at 1939, For 1 dose | | PM PDT | | | | + +--------+ +--------+------+------+ +---+---+ | | | +---+---+ + +-------+ +------+---+---+ | ondansetron (ZOFRAN) injection | Given | 05/07/20 | 4 mg | | | | 4 mg 4 mg, Intravenous, ONCE, | | 19 8:06 | | | | | 05/07/19 at 1939, For 1 dose | | PM PDT | | | | + +-------+ +------+---+---+ +---+---+ | | | +---+---+ + +-------+ +------+---+---+ | risperiDONE (risperDAL) tablet | Given | 05/07/20 | 1 mg | | | | 1 mg 1 mg, Oral, ONCE, Tue | | 19 8:32 | | | | | 05/07/19 at 1940, For 1 dose, | | PM PDT | | | | | Hazardous: Use appropriate | | | | | | | handling precautions., | | | | | | + +-------+ +------+---+---+ +---+---+ | | | +---+---+ documented in this encounter
--- OUTSIDE RECORDS SUMMARY | ~2020-02-08 | XMS | Encounter Summary ---
Demographics + + + | Address | [address] | | | [facility] [facility] [address] | + + + | Home Phone | | + + + | Preferred Language | Unknown | + + + | Marital Status | Single | + + + | Mandaeism Affiliation | 1013 | + + + | Race | Unknown | + + + | Ethnic Group | Unknown | + + + Author + + + | Author | [facility] | | | and [place] | + + + | Organization | [facility] | | | and [place] [...] Team Providers + +------+ + | Care Polisher Apprentice Name | Role | Phone | + +------+ + | Daren Albright MD | PCP | | + +------+ + Reason for Visit + + + | Reason | Comments | + + + | Medication | Rm3; was living in [place], now has straightened out insurance for | | Management | here and ready to see someone | + + + Encounter Details +--------+---------+ + + + | Date | Type | Department | Care Team | Description | +--------+---------+ + + + | 06/14/ | Office | [facility] | Shaggy Ferrer | Bipolar affective | | 2016 | Visit | CARE [address] | Hardeep Antony MD | disorder, remission | | | | [place] | [address] | status unspecified | | | | [address] | [place], [place] | ([facility]) (Primary Dx) | | | | [phone] | [address] | | | | | [...] HPI: Patient just moved back here from [place] and has a history of bipolar disorder [...]
--- OUTSIDE RECORDS SUMMARY | ~2020-02-08 | XMS | Encounter Summary ---
Demographics + + + | Address | [address] | | | [place] [facility] [address] | + + + | Home Phone [...] | Author | [facility] | | | and [place] | + + + | Organization | [facility] | | | and [place] [...] Team Providers + +------+ + | Care Weight Training Instructor Name | Role | Phone | + +------+ + PCP | Unavailable | + +------+ + Encounter Details +--------+ + + + + | Date | Type | Department | Care Team | Description | +--------+ + + + + | 10/08/ | [facility] | [facility] | Scar Carver, | | | 2011 - | Encounter | MED CTR EM[facility]Y | [address] | | | | | CENTER [address] | [place] | | | 10/09/ | | [place] | [address] | | | 2011 | | [address] | | | | | | [phone] | | | +--------+ + + + [...] + | CBC WITH | Routin | 10/09/2011 | | Results for this | | DIFFERENTIAL | e | 12:21 AM | | procedure are in the | | | | PST | | results section. | + +--------+ + + + | TSH | Routin | 10/09/2011 | | Results for this | | | e | 12:21 AM | | procedure are in the | | | | PST | | results section. | + +--------+ + + + | ALCOHOL | Routin | 10/09/2011 | | Results for this | | | e | 12:21 AM | | procedure are in the | | | | PST | | results section. | + +--------+ + + + | ACETAMINOPHEN LEVEL | Routin | 10/09/2011 | | Results for this | | | e | 12:21 AM | | procedure are in the | | | | PST | | results section. | + +--------+ + + + | SALICYLATE LEVEL | Routin | 10/09/2011 | | Results for this | | | e | 12:21 AM | | procedure are in the | | | | PST | | results section. | + +--------+ + + + | COMPREHENSIVE | Routin | 10/09/2011 | | Results for this | | METABOLIC PANEL | e | 12:21 AM | | procedure are in the | | | | PST | | results section. | + +--------+ + + + documented in this encounter Results TSH (10/09/2011 12:21 AM PST) + + + + + + | Component | Value | Ref Range | Performed | Pathologist | | | | | At | Signature | + + + + + + | TSH | 2.15Comment: Testing | 0.34 - 5.60 | [facility] | | | | performed on the [place] | uIU/mL | [facility] | | | | [facility] | | MEDICAL | | | [...] [address] | [place] | [phone] | | [facility] | | [address] | | | - LABORATORY | | | | + + + + + | [facility] | [address] | [place] | | | [facility] | | [address] | | | - LABORATORY | | | | + + + + + Comprehensive Metabolic Panel (10/09/2011 12:21 AM PST) + + + + + + | Component | Value | Ref Range | Performed | Pathologist | | | | | At | Signature | + + + + + + | Glucose | 98 | 70 - 109 mg/dL | [facility] | | | | | | [facility] | | | | | | MEDICAL | | | | | | CENTER - | | | | | | LABORATORY | | + + + + + + | Calcium | 9.2 | 8.3 - 10.5 | [facility] | | | | | mg/dL | [facility] | | | | | | MEDICAL | | | | | | CENTER - | | | | | | LABORATORY | | + + + + + + | Alkaline | 132 | 103 - 429 IU/L | [facility] [...] + + + + | ALT | 19 | 6 - 45 IU/L | [facility] | | | | | | [facility] | | | | | | MEDICAL | | | | | | CENTER - | | | | | | LABORATORY | | + + + + + + | Bilirubin | 0.8 | 0.2 - 1.0 mg/dL | [facility] | | | Total | | | [facility] | | | | | | MEDICAL | | | | | | CENTER - | | | | | | LABORATORY | | + + + + + + | Total | 6.7 | 6.0 - 7.8 gm/dL | [facility] | | | Protein | | | [facility] | | | | | | MEDICAL | | | | | | CENTER - | | | | | | LABORATORY | | + + + + + + | Albumin | 4.1 | 3.2 - 5.0 gm/dL | [facility] [...] + + + + | Creatinine | 0.62 | 0.60 - 1.30 | [facility] | | | | | mg/dL | [facility] | | | | | | MEDICAL | | | | | | CENTER - | | | | | | LABORATORY | | + + + + + + | BUN/Creatin | 24.2 (H) | 12 - 20 | [facility] | | | ine Ratio | | | [facility] | | | | | | MEDICAL | | | | | | CENTER - | | | | | | LABORATORY | | + + + + + + | Na | 138 | 136 - 149 mEq/L | [facility] | | | | | | [facility] | | | | | | MEDICAL | | | | | | CENTER - | | | | | | LABORATORY | | + + + + + + | K | 3.4 (L) | 3.5 - 5.1 mEq/l | [facility] | | | | | | [facility] | | | | | | MEDICAL | | | | | | CENTER - | | | | | | LABORATORY | | + + + + + + | Cl | 104 | 98 - 109 mEq/l | [facility] | | | | | | [facility] | | | | | | MEDICAL | | | | | | CENTER - | | | | | | LABORATORY | | + + + + + + | CO2 | 28 | 24 - 31 mEq/L | [facility] | | | | | | [facility] | | | | | | MEDICAL | | | | | | CENTER - | | | | | | LABORATORY | | + + + + + + | Anion Gap | 9.4 | 6.0 - 17.0 | [facility] | [...] + | [facility] | [address] | [place] | [phone] | | [facility] | | [address] | | | - LABORATORY | | | | + + + + + | [facility] | [address] | [place], [place] | | | [facility] | | [address], [facility] | | | - LABORATORY | | | | + + + + + Acetaminophen Level (10/09/2011 12:21 AM PST) + +-------+ + + + | Component [...] + | [facility] | [address] | [place] | [phone] | | [facility] | | [address] | | | - LABORATORY | | | | + + + + + | [facility] | [address] | [place] | | | [facility] | | [address] | | | - LABORATORY | | | | + + + + + Salicylate Level (10/09/2011 12:21 AM PST) + +-------+ + + + | Component | Value | Ref Range | Performed | Pathologist | | | | | At | Signature | + +-------+ + + + | Salicylate | <4 | <30 mg/dL | [facility] | | | Level | | | [facility] | | [...] + | [facility] | [address] | [place], [place] | [phone] | | [facility] | | [address] | | | - LABORATORY | | | | + + + + + | [facility] | [address] | [place], [place] | | | [facility] | | [address], [facility] | | | - LABORATORY | | | | + + + + + Ethanol (10/09/2011 12:21 AM PST) + +-------+ + + + | Component | Value | Ref Range | Performed | Pathologist | | | | | At | Signature | + +-------+ + + + | ALCOHOL, | <5 | mg/dL | [facility] | | | SERUM/PLASM | | | [facility] | | | A | | [...] + | [facility] | [address] | [place] | [phone] | | [facility] | | [address] | | | - LABORATORY | | | | + + + + + | [facility] | [address] | [place] | | | [facility] | | [address], [facility] | | | - LABORATORY | | | | + + + + + CBC with Differential (10/09/2011 12:21 AM PST) + +---------+ + + + | Component | Value | Ref Range | Performed | Pathologist | | | | | At | Signature | + +---------+ + + + | WBC | 10.5 | 4.5 - 13.5 K/uL | [facility] | | | [facility] | | | | | MEDICAL | | | | | | CENTER - | | | | | | LABORATORY | | + +---------+ + + + | RBC | 4.30 | 4.30 - 5.70 | [facility] | | | | | M/uL | [facility] | | | | | | MEDICAL | | | | | | CENTER - | | | | | | LABORATORY | | + +---------+ + + + | Hemoglobin | 14.0 | 13.5 - 18.0 | [facility] | | | | | gm/dL | [facility] | | | | | | MEDICAL | | | | | | CENTER - | | | | | | LABORATORY | | + +---------+ + + + | Hematocrit | 40.8 | 40.0 - 51.0 % | [facility] | | | | | | [facility] | | | | | | MEDICAL | | | | | | CENTER - | | | | | | LABORATORY | | + +---------+ + + + | MCV | 94.7 | 83.0 - 101.0 fL | [facility] | | | | | | [facility] | | | | | | MEDICAL | | | | | | CENTER - | | | | | | LABORATORY | | + +---------+ + + + | MCH | 32.6 | 28.0 - 35.0 pg | [facility] | | | | | | [facility] | | | | | | MEDICAL | | | | | | CENTER - | | | | | | LABORATORY | | + +---------+ + + + | MCHC | 34.4 | 32.0 - 36.0 | [facility] | | | | | g/dL | [facility] | | | | | | MEDICAL | | | | | | CENTER - | | | | | | LABORATORY | | + +---------+ + + + | RDW-CV | 12.1 | <15.0 % | [facility] | | | | | | [facility] | | | | | | MEDICAL | | | | | | CENTER - | | | | | | LABORATORY | | + +---------+ + + + | Platelet | 323 | 140 - 440 K/uL | [facility] | | | Count | | | [facility] | | | | | | MEDICAL | | | | | | CENTER - | | | | | | LABORATORY | | + +---------+ + + + | % | 49.3 | 45 - 75 % | [facility] | | | Neutrophils | | | [facility] | | | | | | MEDICAL | | | | | | CENTER - | | | | | | LABORATORY | | + +---------+ + + + | % | 37.4 | 20 - 45 % | [facility] | | | Lymphocytes | | | [facility] | | | | | | MEDICAL | | | | | | CENTER - | | | | | | LABORATORY | | + +---------+ + + + | % Monocytes | 9.8 | 4 - 12 % | [facility] | | | | | | [facility] | | | | | | MEDICAL | | | | | | CENTER - | | | | | | LABORATORY | | + +---------+ + + + | % | 3.2 | 0 - 5 % | [facility] [...] +---------+ + + + | Absolute | 5.2 | 1.5 - 6.6 K/uL | [facility] | | | Neutrophils | | | [facility] | | | | | | MEDICAL | | | | | | CENTER - | | | | | | LABORATORY | | + +---------+ + + + | Absolute | 3.9 (H) | 0.6 - 3.2 K/uL | [...] +---------+ + + + | Absolute | 0.3 | 0.0 - 0.4 K/uL | [facility] | | | Eosinophils | | | [facility] | | | | | | MEDICAL | | | | | | CENTER - | | | | | | LABORATORY | | + +---------+ + + + | Absolute | 0.0 | 0.0 - 0.1 K/uL | [facility] | | | Basophils | | | [...] [address] | [place] | [phone] | | [facility] | | [address] | | | - LABORATORY | | | | + + + + + | [facility] | [address] | [place] | | | [facility] | | [address] | | | - LABORATORY | | | | + + + + + documented in this encounter Visit Diagnoses Not on filedocumented in this encounter"
--- OUTSIDE RECORDS SUMMARY | ~2020-02-08 | XMS | Clinical Summary ---
Demographics + + + | Address | [address] | | | [place] [address] | + + + | Home Phone | | + + + | Preferred Language | Unknown | + + + | Marital Status | Single | + + + | Mosque Affiliation | Unknown | + + + | Race | Unknown | + + + | Ethnic Group | Unknown | + + + Author + + + | Author | [facility] (Historical as of | | | 05-11-19) | + + + | Organization | [facility] (Historical as of | | | 05-11-19) [...] Team Providers + +------+ + | Care Associate Research Scientist Name | Role | Phone | + [...] | LAB[place] | LABOR | [id number] | | | | | STATE | & | | | | | | | [place] | | | | | | | [place] | | | | | | | [place] | | | | | + +--------+ +------+-------+---------+ | HEALTH[employer] OPTIONS | HEALTH | [id number] | HMO | | | | MEDICAID [...] | [place] | | | [address] | [place] [address] | + +--------+ +--------+ + + | VETO LEE | Worker | Self | [birth year] | Home: | [address] | | | s Comp | | 1994 | +- | [address] [place] | | | | | | [address] | [place] [address] | + +--------+ +--------+ + +"
--- OUTSIDE RECORDS SUMMARY | ~2020-02-08 | XMS | Encounter Summary ---
Demographics + + + | Address | [address] | | | [place] [facility] [address] | + + + | Home Phone | | + + + | Preferred Language | Unknown | + + + | Marital Status | Single | + + + | Religion Affiliation | 1013 | + + + | Race | Unknown | + + + | Ethnic Group | Unknown | + + + Author + + + | Author | [facility] | | | and [place] | + + + | Organization | [facility] | | | and [...] Team Providers + +------+ + | Care Dye Can Operator Name | Role | Phone | [...] Refill | | 2018 | | [facility] | [address] | | | | | [address] | [place] | | | | | [place] | [address] | | | | | [address] | | | | | | [phone] | | | +--------+--------+ + + + [...]
--- OUTSIDE RECORDS SUMMARY | ~2020-02-08 | XMS | Encounter Summary ---
Demographics + + + | Address | [address] | | | [place] [facility] [address] | + + + | Home Phone | | + + + | Preferred Language | Unknown | + + + | Marital Status | Single | + + + | Catholic Affiliation | 1013 | + + + | Race | Unknown | + + + | Ethnic Group | Unknown | + + + Author + + + | Author | [facility] | | | and [place] | + + + | Organization | [facility] | | | and [place] [...] Team Providers + +------+ + | Care Internal Recruiter Name | Role | Phone | + [...] | | | | CENTER [address] | [facility] [place] | fingers, initial | | | | [place], [place] | [place] [address] | encounter (Primary | | | | [address] | [phone] | Dx); Abrasion of | | | | [phone] | | multiple sites of | | [...] sent through Care Everywhere.Abrasions (Engl debra)Hand Contusion (Egyptian)documented in this encounter Medications at Time of [...] | | | | | ([facility]) | | | | | | + [...] | | + +--------+ +---------+------+ + | hqmbxot-ydjvsgtlwi-cibxfnknu | Given | 07/27/20 | 0.5 mLs | | Deltoid- | | pertussis (ADACEL, Tdap) vaccine | | 17 2:39 | | | Right | | injection 0.5 mL 0.5 mL, | | PM PDT | | | | | Intramuscular, ONCE, [facility] 07/27/17 | | | | | | | at 1435, For 1 dose, Keep in | | | | | | | refrigerator. Provide patient | | | | | | | education information., | | | | | | + +--------+ +---------+------+ + +---+---+ | | | +---+---+ documented in this encounter
--- OUTSIDE RECORDS SUMMARY | ~2020-02-08 | XMS | Encounter Summary ---
Demographics + + + | Address | [address] | | | [place] [facility] [address] | + + + | Home Phone | | + + + | Preferred Language | Unknown | + + + | Marital Status | Single | + + + | Yazidi Affiliation | 1013 | + + + | Race | Unknown | + + + | Ethnic Group | Unknown | + + + Author + + + | Author | [facility] | | | and [place] | + + + | Organization | [facility] | | | and [place] [...] Team Providers + +------+ + | Care Warehouse Foreman Name | Role | Phone | + +------+ + | Emilia Ibarra | PCP | | + +------+ + Reason for Visit + + + | Reason | Comments | + + + | Medical Problem | | | (Minor) | | + + + Encounter Details +--------+ + + + + | Date | Type | Department | Care Team | Description | +--------+ + + + + | 05/13/ | Emergency | [facility] | Stewart Fletcher MD | Displaced fracture | | 2018 | | MED CTR EMER[facility]Y | [address] | of base of fifth | | | | CENTER [address] | [place], [place] | metacarpal bone, | | | | [place], [place] | [address] | right hand, initial | | | | [address] | | encounter for closed | | | | [phone] | | fracture (Primary | | | | | | Dx) | +--------+ + + + + Social [...] + + + | Blood Pressure | 130/76 | 05/13/2018 3:30 PM | | | | | PDT | | + + + + + | Pulse | 71 | 05/13/2018 4:00 PM | | | | | PDT | | + + + + + | Temperature | 36 C (96.8 F) | 05/13/2018 3:26 PM | | | | | PDT | | + + + + + | Respiratory Rate | 16 | 05/13/2018 3:26 PM | | | | | PDT | | + + + + + | Oxygen Saturation | 98% | 05/13/2018 4:00 PM | | | | | PDT | | + + + + + | Inhaled Oxygen | - | - | | | Concentration | | | | + + + + + | Weight | 82.6 kg (182 lb) | 05/13/2018 3:26 PM | | | | | PDT | | + + + + + | Height | 177.8 cm (5' 10") | 05/13/2018 3:26 PM | | | | | PDT | | + + + + + | Body Mass Index | 26.11 | 05/13/2018 3:26 PM | | | | | PDT | | + + + + + documented in this encounter Discharge Instructions Instructions Stewart Fletcher MD - 05/13/2018Call Dr. Rai on Monday for follow-up Continue splint May use ice for swelling Return for worsening symptoms, other new complaints documented in this encounter Medications at Time [...] | | | | | | | ([facility]) | | | | | | [...] RIGHT 3 + VW | STAT | 05/13/2018 | | Results for this | | | | 4:05 PM | | procedure are in the | | | | PDT | | results section. | + +--------+ + + + documented in this encounter Results XR Hand Right 3 + Vw (05/13/2018 4:05 PM PDT) + + | Specimen | + + | | + + + + + | Narrative | Performed At | + + + | THREE VIEWS RIGHT HAND 05/13/2018 3:59 PM CLINICAL HISTORY: | [facility] | | MEDICAL PROBLEM (MINOR) COMPARISON: RADIOGRAPHS JULY 2017 | | | FINDINGS: The bones are well-mineralized and well aligned. | | | Angulated, minimally displaced fracture of the mid to distal fifth | | | metacarpal shaft is now apparent, with some associated callus | | | formation. The irregular transverse fracture line is readily | | | visible. No other fracture or subluxation is visible. Joint spaces | | | are maintained. Soft tissues are unremarkable. IMPRESSION - | | | 1. HEALING, ANGULATED FRACTURE OF THE FIFTH METACARPAL SHAFT. | | | RE-INJURY IS A CONSIDERATION IN THE APPROPRIATE CLINICAL SETTING. | | | Dictated and Signed by: Hitesh Rouse MD Electronically signed: | | | 05/13/2018 9:58 PM | | + + + + + | Procedure Note | + + | Gurinder, Rad Results In - 05/13/2018 10:01 PM PDT THREE VIEWS RIGHT HAND 05/13/2018 3:59 | | PMCLINICAL HISTORY: MEDICAL PROBLEM (MINOR)COMPARISON: RADIOGRAPHS JULY | | 2016FINDINGS: The bones are well-mineralized and well aligned. Angulated, | | minimallydisplaced fracture of the mid to distal fifth metacarpal shaft is now | | apparent,with some associated callus formation. The irregular transverse fracture | | lineis readily visible. No other fracture or subluxation is visible. Joint spacesare | | maintained. Soft tissues are unremarkable.IMPRESSION -1. HEALING, ANGULATED FRACTURE | | OF THE FIFTH METACARPAL SHAFT. RE-INJURY IS ACONSIDERATION IN THE APPROPRIATE CLINICAL | | SETTING.Dictated and Signed by: Hitesh Rouse MD Electronically signed: 05/13/2018 9:58 | | PM | |are maintained. Soft tissues are unremarkable. | | | |IMPRESSION - | |1. HEALING, ANGULATED FRACTURE OF THE FIFTH METACARPAL SHAFT. RE-INJURY IS A | |CONSIDERATION IN THE APPROPRIATE CLINICAL SETTING. | | | |Dictated and Signed by: Hitesh Rouse MD | | Electronically signed: 05/13/2018 9:58 PM | + + + +---------+ + + | Performing | Address | City/State/Zipcode | Phone Number | | Organization | | | | + +---------+ + + | [facility] | | | | + +---------+ + + documented in this encounter Visit Diagnoses + + | Diagnosis | + + | Displaced fracture of base of fifth metacarpal bone, right hand, initial encounter for | | closed fracture - Primary | + + documented in this encounter
--- OUTSIDE RECORDS SUMMARY | ~2020-02-08 | XMS | Encounter Summary ---
Demographics + + + | Address | [address] | | | [facility] [address] | + + + | Home Phone | | + + + | Preferred Language | Unknown | + + + | Marital Status | Single | + + + | Mandaen Affiliation | 1013 | + + + | Race | Unknown | + + + | Ethnic Group | Unknown | + + + Author + + + | Author | [facility] | | | and [place] | + + + | Organization | [facility] | | | and [...] Team Providers + +------+ + | Care Legal Process Specialist Name | Role | Phone | + +------+ + PCP | Unavailable | + +------+ + Encounter Details +--------+ + + + + | Date | Type | Department | Care Team | Description | +--------+ + + + + | 02/21/ | [facility] | [facility] | Davion Gallardo | | | 2009 | Encounter | MED CTR EMER[facility]ENCY | MD [address] | | | | | CENTER [address] | [place] | | | | | [place] | [place] [address] | | | | | [address] | [phone] | | | | | [phone] | | | +--------+ + + + [...]
--- OUTSIDE RECORDS SUMMARY | ~2020-02-08 | XMS | Encounter Summary ---
Demographics + + + | Address | [address] | | | [place] [facility] [place] [address] | + + + | Home Phone | | + + + | Preferred Language | Unknown | + + + | Marital Status | Single | + + + | Orthodox Affiliation | 1013 | + + + | Race | Unknown | + + + | Ethnic Group | Unknown | + + + Author + + + | Author | [facility] | | | and [place] | + + + | Organization | [facility] | | | and [...] Team Providers + +------+ + | Care Tobacco Packing Machine Operator Name | Role | Phone [...] + + | 06/06/ | Office | [facility] | Dillan Downing, | Bilateral leg pain | | 2012 | Visit | CARE [address] | MD [address] | (Primary Dx) | | | | [place] | [place], [place] | | | | | [address] | [address] | | | | | [phone] | | | +--------+---------+ + + + [...]
--- OUTSIDE RECORDS SUMMARY | ~2020-02-08 | XMS | Clinical Summary ---
Demographics + + + | Address | [address] | | | [place] [address] | + + + | Home Phone | | + + + | Preferred Language | Unknown | + + + | Marital Status | Single | + + + | Shinto Affiliation | 1013 | + + + | Race | Unknown | + + + | Ethnic Group | Unknown | + + + Author + + + | Author | [facility] | | | and [place] | + + + | Organization | [facility] | | | and [...] Team Providers + +------+ + | Care Yard Loader Operator Name | Role | Phone | [...] | | | | | | ([facility]) | | | | | | | [...] | [employer] | [employer] | [id number] | | [phone] | | Medica | | MEDICAID HMO | HEALTH | | 018-Pr | 1 | | id | | | MDCD | | esent | | | | | | [place]MO [place] | | | | | | + +--------+ +--------+ +---------+--------+ | [employer] | [employer] | [id number] | 11/24/19 | | | Medica | [...] al/Fam | | 1994 | [phone] | [place], [place] | | | [place] | | | 8 (Home) | [address] | + +--------+ +--------+ + + | Jeyson Lee | Worker | Self | [birth year] | | [address] | | | s Comp | | 1994 | [phone] | [place] | | | | | | 8 (Home) | [address] | + +--------+ +--------+ + + | Jeyson Lee | Person | Self | [birth year] | | [address] | | | al/Fam | | 1994 | 1 | [place] [facility] [place] | | | [place] | | | 8 (Home) | [address] | + +--------+ +--------+ + + Advance Directives + + + + + | Type | Date Recorded | Patient | Explanation | | | | Scalp Treatment Operator | | + + + + + | Power of | | | | | Project Management Professional | | | | + + + + + | Advance | 05/13/2017 7:32 | | | | Directive | PM | | | + + + + +
--- OUTSIDE RECORDS SUMMARY | ~2020-02-08 | XMS | Encounter Summary ---
Demographics + + + | Address | [address] | | | [facility] [address] | + + + | Home Phone | | + + + | Preferred Language | Unknown | + + + | Marital Status | Single | + + + | Baptist Affiliation | 1013 | + + + | Race | Unknown | + + + | Ethnic Group | Unknown | + + + Author + + + | Author | [facility] | | | and [place] | + + + | Organization | [facility] | | | and [place] [...] Team Providers + +------+ + | Care Drop Press Hand Name | Role | Phone | + [...] + + | 12/10/ | Emergency | [facility] | Eber Lofton | Psychiatric | | 2018 - | | MED CTR EMERGENCY | MD Denny [address] | complaint (Primary | | | | CENTER [address] | [address] [place] | Dx) | | 12/11/ | | [place] | [place] [address] | | | 2018 | | [address] | [phone] | | | | | [phone] | | | +--------+ + + + [...] Illness, When a Loved One Has a (Bulgarian)documented in this encounter Medications at Time of [...] |The preliminary report is provided by Dr. Neslon on December 10, 2017 at 10:57 | [...]
--- OUTSIDE RECORDS SUMMARY | ~2020-02-08 | XMS | Encounter Summary ---
Demographics + + + | Address | [address] | | | [facility] [address] | + + + | Home Phone | | + + + | Preferred Language | Unknown | + + + | Marital Status | Single | + + + | Gnosticist Affiliation | 1013 | + + + | Race | Unknown | + + + | Ethnic Group | Unknown | + + + Author + + + | Author | [facility] | | | and [place] | + + + | Organization | [facility] | | | and [place] [...] Team Providers + +------+ + | Care Career Professional Name | Role | Phone | + [...] | | | | CENTER [address] | [address] | | | | | [place], [place] | [place], [place] | | | | | [address] | [address] | | | | | [phone] | | | +--------+ + + + [...] | | | | | | | ([facility]) | | | | | | + [...] | | | | | | | ([facility]) | | | | | | + [...] | | | | | | | ([facility]) | | | | | | + [...]
--- OUTSIDE RECORDS SUMMARY | ~2020-02-08 | XMS | Encounter Summary ---
Demographics + + + | Address | [address] | | | [place] [address] | + + + | Home Phone | | + + + | Preferred Language | Unknown | + + + | Marital Status | Single | + + + | Sabianist Affiliation | 1013 | + + + | Race | Unknown | + + + | Ethnic Group | Unknown | + + + Author + + + | Author | [facility] | | | and [place] | + + + | Organization | [facility] | | | and [place] [...] Team Providers + +------+ + | Care Shells Inspector Name | Role | Phone | + +------+ + PCP | Unavailable | + +------+ + Encounter Details +--------+ + + + + | Date | Type | Department | Care Team | Description | +--------+ + + + + | 02/21/ | [facility] | [facility] | Davion Gallardo | | | 2009 | Encounter | MED CTR EMERGENCY | MD Lazaro [address] | | | | | CENTER [address] | [address] [place] | | | | | [place] | [place] [address] | | | | | [address] | [phone] | | | | | [phone] | | | +--------+ + + + [...]
--- OUTSIDE RECORDS SUMMARY | ~2020-02-08 | XMS | Encounter Summary ---
Demographics + + + | Address | [address] | | | [place] [facility] [address] | + + + | Home Phone | | + + + | Preferred Language | Unknown | + + + | Marital Status | Single | + + + | Hinduism Affiliation | 1013 | + + + | Race | Unknown | + + + | Ethnic Group | Unknown | + + + Author + + + | Author | [facility] | | | and [place] | + + + | Organization | [facility] | | | and [...] Team Providers + +------+ + | Care Linen Tech Name | Role | Phone | + +------+ + PCP | Unavailable | + +------+ + Encounter Details +--------+ + + + + | Date | Type | Department | Care Team | Description | +--------+ + + + + | 10/08/ | [facility] | [facility] | Scar Carver, | | | 2011 - | Encounter | MED CTR EMERGENCY | [address] | | | | | CENTER [address] | [place] | | | 10/09/ | | [place] | [address] | | | 2011 | | [address] | | | | | | [phone] | | | +--------+ + + + [...] performed on the Mata | uIU/mL | [facility] | | | | [facility] | | MEDICAL | | | [...] [address] | [place] | [phone] | | [facility] | | [address] | | | - LABORATORY | | | | + + + + + | [facility] | [address] | [place] | | | [facility] | | [address] | | | - [...] + | [facility] | [address] | [place] | [phone] | | [facility] | | [address] | | | - LABORATORY | | | | + + + + + | [facility] | [address] | [place], [place] | | | [facility] | | [address], [facility] | | | - [...] + | [facility] | [address] | [place] | [phone] | | [facility] | | [address] | | | - LABORATORY | | | | + + + + + | [facility] | [address] | [place] | | | [facility] | | [address] | | | - [...] + | [facility] [facility] | [address] | [place], [place] | [phone] | | [facility] | | [address] | | | - LABORATORY | | | | + + + + + | [facility] [facility] | [address] | [place], [place] | | | [facility] | | [address], [facility] | | | - [...] | | SERUM/PLASM | | | [facility] | | | A | | [...] + | [facility] | [address] | [place] | [phone] | | [facility] | | [address] | | | - LABORATORY | | | | + + + + + | [facility] | [address] | [place] | | | [facility] | | [address], [facility] | | | - [...] 0.0 | 0.0 - 0.1 K/uL | MARYAM | | | Basophils | | | [...] [address] | [place] | [phone] | | [facility] | | [address] | | | - LABORATORY | | | | + + + + + | [address] | [address] | [place] | | | [facility] | | [address] | | | - LABORATORY | | | | + + + + + documented in this encounter Visit Diagnoses Not on filedocumented in this encounter"
--- OUTSIDE RECORDS SUMMARY | ~2020-02-08 | XMS | Encounter Summary ---
Demographics + + + | Address | [address] | | | [place] [facility] [address] | + + + | Home Phone [...] + + + | Author | [facility] | | | and [place] | + + + | Organization | [facility] | | | and [place] [...] Providers + +------+ + | Care Linen Room Attendant Name | Role | Phone | + +------+ + PCP | Unavailable | + +------+ + Encounter Details +--------+ + + + + | Date | Type | Department | Care Team | Description | +--------+ + + + + | 02/04/ | [facility] | [facility] | [place], | | | 2010 | Encounter | MED CTR EMERGENCY | MD [address] | | | | | CENTER [address] | [facility] | | | | | [place] | [place] [address] | | | | | [address] | [phone] | | | | | [phone] | | | +--------+ + + + [...] [address] | [place] | [phone] | | [facility] | | [address] | | | - LABORATORY | | | | + + + + + | [facility] | [address] | [place] | | | [facility] | | [address], [facility] | | | - [...] + + | Performing | Address | City/[facility]/Zipcode | Phone Number | | Organization | | | | + + + + + | [facility] | [address] | [place], [place] | [phone] | | [facility] | | [address] | | | - LABORATORY | | | | + + + + + | [facility] | [address] | [place], [place] | | | [facility] | | [address], [facility] | | | - [...] + | [facility] | [address] | [place], [place] | [phone] | | [facility] | | [address] | | | - LABORATORY | | | | + + + + + | [facility] | [address] | [place], [place] | | | [facility] | | [address] | | | - LABORATORY | [...] [address] | [place] | [phone] | | [facility] | | [address] | | | - LABORATORY | | | | + + + + + | [facility] | [address] | [place] | | | [facility] | | [address], [facility] | | | - [...] + + | Performing | Address | City/[facility] | Phone Number | | Organization | | | | + + + + + | [facility] | [address] | [place], [place] | [phone] | | [facility] | | [address] | | | - LABORATORY | | | | + + + + + | [facility] | [address] | [place] | | | [facility] | | [address], [facility] | | | - [...] | | | Level | | | [facility] | | | | | | MEDICAL [...] + | [facility] | [address] | [place], [place] | [phone] | | [facility] | | [address] | | | - LABORATORY | | | | + + + + + | [facility] | [address] | [place], [place] | | | [facility] | | [address] | | | - LABORATORY | [...] | | SERUM/PLASM | | | [facility] | | | A | [...] [address] | [place] | [phone] | | [facility] | | [address] | | | - LABORATORY | | | | + + + + + | [facility] | [address] | [place] | | | [facility] | | [address], [facility] | | | - LABORATORY | | | | + + + + + documented in this encounter Visit Diagnoses Not on filedocumented in this encounter"
--- OUTSIDE RECORDS SUMMARY | ~2020-02-08 | XMS | Encounter Summary ---
Demographics + + + | Address | [address] | | | [facility] [facility] [address] | + + + | Home Phone | | + + + | Preferred Language | Unknown | + + + | Marital Status | Single | + + + | Congregational Affiliation | 1013 | + + + | Race | Unknown | + + + | Ethnic Group | Unknown | + + + Author + + + | Author | [facility] | | | and [place] | + + + | Organization | [facility] | | | and [place] [...] Team Providers + +------+ + | Care Clinical Abstractor Name | Role | Phone | + [...] | | | | CENTER [address] | [address] [place] | flank pain | | | | [place], [place] | [place] [address] | | | | | [address] | [phone] | | | | | [phone] | | | +--------+ + + + [...] be sent through Care Everywhere.Abdominal Pain, Adult (Nepalese)documented in this encounter Medications at Time of [...] [address] | [place] | [phone] | | [facility] | | [address] | | | - LABORATORY | | [...] | 0.83 | 0.70 - 1.30 | [facility] | | | | | mg/dL | [facility] | | | | | | MEDICAL | | | | | | CENTER - | | | | | | LABORATORY | | + + + + + + | eGFR if not | >60Comment: GLOMERULAR | >=60 | [facility] | | | | FILTRATION | mL/min/1.73m2 | [facility] | | | [place] | RATE,ESTIMATED | | MEDICAL | | | | mL/min/1.15u7Esce than | | CENTER - | | [...] [address] | [place] | [phone] | | [facility] | | [address] | | | - LABORATORY | | [...] [address] | [place] | [phone] | | [facility] | | [address] | | | - LABORATORY | | [...] - 1.030 | [facility] | | | [place], | | | [facility] | | [...] ST. | [address] | [place] | [phone] | | [facility] | | [address] | | | - LABORATORY | | [...] [address] | [place] | [phone] | | [facility] | | [address] | | | - LABORATORY | | [...] + | [facility] | [address] | [place] | [phone] | | [facility] | | [address] | | | - LABORATORY | | [...]
--- OUTSIDE RECORDS SUMMARY | ~2020-02-08 | XMS | Encounter Summary ---
Demographics + + + | Address | [address] | | | [place] [facility] [address] | + + + | Home Phone | | + + + | Preferred Language | Unknown | + + + | Marital Status | Single | + + + | Scientology Affiliation | 1013 | + + + | Race | Unknown | + + + | Ethnic Group | Unknown | + + + Author + + + | Author | [facility] | | | and [place] | + + + | Organization | [facility] | | | and [place] [...] Team Providers + +------+ + | Care Chore Worker Name | Role | Phone | + +------+ + | Emilia Ibarra | PCP | | + +------+ + Encounter Details +--------+ + + + + | Date | Type | Department | Care Team | Description | +--------+ + + + + | 02/24/ | Emergency | [facility] | Beni Hendrix MD | Psychosis, | | 2019 | | [facility] | [address] | unspecified | | | | EMERGENCY CENTER | [place] [address] | psychosis type | | | | [address] | [phone] | ([facility]); Auditory | | | | [place], [place] | | hallucinations | | | | [address] | | | | | | [phone] | | | +--------+ + + + [...] | | | | | | | ([facility]) | | | | | [...] + + | Psychosis, unspecified psychosis type ([facility]) | + + | Auditory hallucinations Hallucinations | + + documented in this encounter"
--- OUTSIDE RECORDS SUMMARY | ~2020-02-08 | XMS | Encounter Summary ---
Demographics + + + | Address | [address] | | | [place] [facility] [place] [address] | + + + | Home Phone | | + + + | Preferred Language | Unknown | + + + | Marital Status | Single | + + + | Rastafarian Affiliation | 1013 | + + + | Race | Unknown | + + + | Ethnic Group | Unknown | + + + Author + + + | Author | [facility] | | | and [place] | + + + | Organization | [facility] | | | and [place] [...] Team Providers + +------+ + | Care Hammer Heater Name | Role | Phone | + +------+ + PCP | Unavailable | + +------+ + Encounter Details +--------+ + + + + | Date | Type | Department | Care Team | Description | +--------+ + + + + | 03/29/ | [facility] | [facility] | [place] Re[place], | | | 2012 | Encounter | MED CTR EMERGENCY | [address] | | | | | CENTER [address] | [facility] | | | | | [place] | [place] [address] | | | | | [address] | [phone] | | | | | [phone] | | | +--------+ + + + [...] + | [facility] | [address] | [place], [place] | [phone] | | [facility] | | [address] | | | - LABORATORY | | | | + + + + + | [facility] | [address] | [place] | | | [facility] | | [address] | | | - LABORATORY | [...] + | [facility] | [address] | [place] | [phone] | | [facility] | | [address] | | | - LABORATORY | | | | + + + + + | [facility] | [address] | [place], [place] | | | [facility] | | [id number] [place] [address] | | | - LABORATORY | | [...] + | [facility] | [address] | [place], [place] | [phone] | | [facility] | | [address] | | | - LABORATORY | | | | + + + + + | [facility] | [address] | [place], [place] | | | [facility] | | [address], [place] | | | - LABORATORY | | [...] + | [facility] | [address] | [place] | [phone] | | [facility] | | [address] | | | - LABORATORY | | | | + + + + + | [facility] | [address] | [place] | | | [facility] | | [id number] | | | - LABORATORY | [...] + | [facility] | [address] | [place] | [phone] | | [facility] | | [address] | | | - LABORATORY | | | | + + + + + | [facility] | [address] | [place] | | | [facility] | | [id number] | | | - LABORATORY | [...] + | [facility] [facility] | [address] | [place] | [phone] | | [facility] | | [address] | | | - LABORATORY | | | | + + + + + | [facility] [facility] | [address] | [place], [place] | | | [facility] | | [address] | | | - LABORATORY | [...] [address] | [place] | [phone] | | [facility] | | [address] | | | - LABORATORY | | | | + + + + + | M[facility] HUIZAR. | [address] | [place] | | | [facility] | | [address] | | | - LABORATORY | | | | + + + + + documented in this encounter Visit Diagnoses Not on filedocumented in this encounter"
--- OUTSIDE RECORDS SUMMARY | ~2020-02-08 | XMS | Encounter Summary ---
Demographics + + + | Address | [address] | | | [facility] [facility] [place] [address] | + + + | Home Phone | | + + + | Preferred Language | Unknown | + + + | Marital Status | Single | + + + | Buddhism Affiliation | 1013 | + + + | Race | Unknown | + + + | Ethnic Group | Unknown | + + + Author + + + | Author | [facility] | | | and [place] | + + + | Organization | [facility] | | | [...] Team Providers + +------+ + | Care Agile Developer Name | Role | Phone | + [...] + + | 05/13/ | [facility] | [facility] | Stewart Fletcher MD | Displaced fracture | | 2018 | | MED CTR EMERGENCY | [address] | of base of fifth | | | | CENTER [address] | [place], [place] | metacarpal bone, | | | | [place], [place] | [address] | right hand, initial | | | | [address] | | encounter for closed | | | | [phone] | | fracture (Primary | | | [...] | | | | | | | ([facility]) | | | | | [...]
== END 2020-02-08 11:48 | disposition home or self-care (01) ==
LOC: ED 10:19
DX: J30.9 Allergic rhinitis, unspecified (principal); F41.9 Anxiety disorder, unspecified; F31.9 Bipolar disorder, unspecified; F17.200 Nicotine dependence, unspecified, uncomplicated
CPT/HCPCS: 99283